=== PATIENT | female | born 1940 | race Caucasian/White ===

== ENCOUNTER → 2020-08-15 13:09 | Outpatient (REF) | payer MEDICARE, SELFPAY ==
--- NOTE | 2020-08-15 13:00 | CA_ITS ---
Transthoracic Echocardiogram Patient (Last, First, Middle): Zofia Burt A Gender: Female Date of : 1940 Age: 80 Procedure Date: 08/15/2020 Procedure Type: Transthoracic Echocardiogram Location: OP Height: 162.56 cm Weight: 51.26 kg BSA: 1.53 m2 Heart Rate: bpm BP: 174 / 70 mmHg Supervisor Type Bar And Segment: Referring MD: Lakhwinder Taveras MD Symptoms: PAF, diastolic dysfunction, pulmonary hypertension Study Quality: Good ECG Rhythm: Sinus Conclusions: - The left ventricular systolic function is normal. The visually estimated ejection fraction is between 60-65%. - There is mild calcification of the aortic valve. - There is mild mitral valve regurgitation. - There is mild tricuspid valve regurgitation. - Severe pulmonary hypertension is present. Findings Left Ventricle Normal left ventricular cavity size. There is normal left ventricular wall thickness. The left ventricular systolic function is normal. The visually estimated ejection fraction is between 60-65%. There is no evidence of regional wall motion abnormalities. E/E prime ratio is between 8 and 15 consistent with indeterminate filling pressures. Evidence suggests grade I (mild) diastolic dysfunction. Right Ventricle Normal right ventricular cavity size and systolic function. Atria The left atrium is normal in size. The right atrium is normal in size. Aortic Valve There is a normal trileaflet aortic valve. There is mild calcification of the aortic valve. There is no aortic valve stenosis. There is no aortic valve regurgitation. Mitral Valve The mitral valve appears normal. There is mild mitral valve regurgitation. There is no mitral valve stenosis. Pulmonic Valve The pulmonic valve was not well visualized. Tricuspid Valve Normal tricuspid valve structure. There is mild tricuspid valve regurgitation. The right ventricular systolic pressure is 68 mmHg. Severe pulmonary hypertension is present. Great Vessels The aortic annulus, sinuses of valsalva, asc aorta, and aortic arch are normal in size. Venous The inferior vena cava is normal in size and collapses greater than 50% with inspiration. Pericardium/Pleural There is no evidence of pericardial effusion. Prior Study Comparison Changes noted compared to prior study dated: 12/10/2017. RVSP is lower than prior study. Measurements 2D Linear Measurements RVADd: 0.39 RVIDd: 2.73 IVSd: 0.90 0.6-0.9/0.6-1.0 cm LVIDd: 4.89 3.9-5.3/4.2-5.9 cm LVIDs: 3.28 2.0-3.6 cm LVPWd: 1.03 0.7-1.1 cm Ao Root: 2.65 2.1-3.5 cm LA Diam: 3.70 2.7-3.8/3.0-4.0 cm LV Mass: 208.46 67-162/88-224 g LVOT Diam: 2.09 3.0+(-)1.3 cm Mitral Valve MV Pk E: 1.02 MV PK A: 1.24 MV Decel Time: 178.09 E/A: 0.82 E'Lateral: 0.09 E'Medial: 0.06 Decel Ellis: 5.75 Aortic Valve AoV Pk Ajit: 1.77 AoV Mn Ajit: 1.17 AoV VTI: 0.36 AoV Pk Grad: 12.58 Aov Mn Grad: 6.14 LVOT LVOT Pk Ajit: 1.30 LVOT Mn Ajit: 0.82 LVOT VTI: 0.24 LVOT Pk Grad: 6.74 LVOT Mn Grad: 3.14 LVOT Diam: 2.09 LVOT Area: 3.44 Diastolic Function MV Pk E: 1.02 MV Pk A: 1.24 E/A: 0.82 E'Medial: 0.06 E' Laterial: 0.09 Tricuspid Valve TR Pk Ajit: 3.88 TR Pk Grad: 60.28 RA Press: 8.00 RVSP: 68.00 Great Vessels Aorta Ao Root-2D: 2.65 2.0-3.7 cm Ao Asc: 3.23 2.1-3.4 cm Ao Arch: 2.34 Updated in Other Vendor System with Status of Final Lakhwinder Taveras MD electronically signed on 08/18/2020 1:32:33 PM with status of Final
== END ==
LOC: HO.CARD 13:09
PROVIDERS: PCP Internal Medicine; Visit Provider Internal Medicine
DX: I48.0 Paroxysmal atrial fibrillation (principal); I11.9 Hypertensive heart disease without heart failure; I27.20 Pulmonary hypertension, unspecified
CPT/HCPCS: 93306

== ENCOUNTER 2021-08-21 15:42 | Inpatient (IN) | payer OTHER, SELFPAY ==
--- NOTE | ~2021-08-21 | CT_ITS ---
EXAMINATION: CT ABDOMEN AND PELVIS WITHOUT CONTRAST CLINICAL INFORMATION: Fall, hip pain, back pain. On anticoagulants. COMPARISON: CT abdomen/pelvis dated from 07/09/2020. TECHNIQUE: Multidetector volumetric imaging was performed from the superior aspect of the liver through the pubic symphysis. Sagittal and coronal reformatted images were obtained on the technologist's workstation. This CT examination was performed using dose optimization techniques as appropriate, variously including the following: *Automated exposure control *Adjustment of mA and/or kV according to patient size (this includes techniques or standardized protocols for targeted exams where dose is matched to indication/reason for exam; i.e. extremities or head) *Use of iterative reconstruction technique DLP: 383 mGy-cm FINDINGS: LUNG BASES: New tree-in-bud opacities and reticular opacities in the right lung base with some associated subcentimeter centrilobular nodules. No pleural effusion. Partially visualized pacer leads. Coronary calcifications. LIVER, GALLBLADDER, AND BILIARY TREE: The liver is normal in size, shape and attenuation. Scattered calcified granulomas are stable. The gallbladder is within normal limits. There is no biliary ductal dilatation. PANCREAS: Atrophic without discrete abnormalities. The main pancreatic duct is nondilated. SPLEEN: Calcified granulomas scattered in the parenchyma. Normal size. ADRENAL GLANDS: Unremarkable. KIDNEYS AND URETERS: Extensive vascular calcifications. No hydronephrosis or nephrolithiasis. Mild perinephric fat stranding. BLADDER: Unremarkable. GASTROINTESTINAL TRACT: The stomach and the small bowel are nondilated. There is extensive stool burden throughout the colon and rectum without significant pericolic nor perirectal inflammatory changes. No bowel obstruction. ABDOMINAL WALL: Small fat-containing umbilical hernia. Indeterminate soft tissue tissue edema and thickening posterior to the sacrum. LYMPH NODES: Decreased intra-abdominal fat and lack of intravenous contrast limits assessment of lymphadenopathy. However, no bulky lymphadenopathy is identified. VASCULAR: There is redemonstration of an aorto bifemoral stent. In the upper abdomen adjacent to the celiac trunk, there is a stable outpouching off the left abdominal aorta (image 15 of series 24). The abdominal aorta measures up to 4.2 cm, which is increased from 4 cm on July 2020. PELVIC VISCERA: Hysterectomy. No adnexal lesions. OSSEOUS STRUCTURES: New fracture in the right hip intertrochanteric region with an overlying hematoma that measures up to 5.7 cm in length. The femoral heads are well-seated in the acetabula. Extensive degenerative changes with stable compression deformity at T12. CT/CT abdomen pelvis wo con IMPRESSION: New right femoral fracture at the level of the intertrochanteric region. Overlying hematoma in the right gluteal region measuring up to 5.7 cm in length with a blood fluid level. Soft tissue thickening in the skin posterior to the sacrum, correlate clinically for a dependent ulcer. New tree-in-bud and irregular opacities in the right lower lobe raising the possibility of an infectious process of the small airways. Correlate clinically and follow-up to ensure resolution. Complex appearance of the abdominal aorta with an aortobifemoral stent which is suboptimally evaluated in this examination without intravenous contrast. The diameter of the excluded abdominal aorta is slightly increase since July 2020. Recommend a short-term follow-up study with intravenous contrast if possible to evaluate for endoleak or other abnormalities associated with the stent. Extensive stool burden suggesting constipation.
--- NOTE | ~2021-08-21 | CT_ITS ---
EXAMINATION: CT HEAD WITHOUT CONTRAST CT CERVICAL SPINE WITHOUT CONTRAST CLINICAL INFORMATION: Trauma. COMPARISON: CT cervical spine dated from 09/12/2019. TECHNIQUE: Contiguous axial imaging was performed from the skull base to vertex without intravenous administration of contrast. Contiguous axial imaging was performed from the upper chest through the skull base without intravenous administration of contrast. Coronal and sagittal reformats were obtained at the acquisition workstation. This CT examination was performed using dose optimization techniques as appropriate, variously including the following: *Automated exposure control *Adjustment of mA and/or kV according to patient size (this includes techniques or standardized protocols for targeted exams where dose is matched to indication/reason for exam; i.e. extremities or head) *Use of iterative reconstruction technique DLP: 383 mGy-cm FINDINGS: Head: There is no evidence of acute intracranial hemorrhage or edematous territorial infarction. Confluent hypoattenuation in the periventricular and deep white matter. There are several chronic appearing infarcts, for example adjacent to the caudates and in the right occipital lobe. Proportional prominence of the ventricles and sulcal spaces. No evidence for obstructive hydrocephalus. Cavum et vergae. No abnormal mass effect or midline shift. No extra-axial fluid collections. No acute soft tissue or osseous abnormalities. Mild mucosal thickening of the paranasal sinuses. The mastoids are clear. Cervical Spine: The atlantooccipital and atlantoaxial articulations remain well aligned. Unchanged grade 1 anterolisthesis of C2 on C3 and C5 on C6. No evidence of acute fracture or subluxation. Redemonstration of moderate to significant cervical spondylosis, overall stable since 2019 and more prominent in the mid to lower cervical spine. There is also prominent bilateral facet arthropathy leading to multilevel neural foraminal encroachment. There is no prevertebral soft tissue swelling. A 1 cm hypoattenuating nodule in the left lobe of the thyroid is unchanged since 2019. There is biapical pleural thickening/scarring. 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 No acute edematous territorial infarction or intracranial bleeding. No acute cervical fractures. Moderate to significant cervical spondylosis stable since 2019.
--- NOTE | ~2021-08-21 | XR_ITS ---
EXAMINATION: XR HIP, RIGHT CLINICAL INFORMATION: Status post fall COMPARISON: Pelvis radiographs 09/12/2019 TECHNIQUE: AP pelvis, AP and lateral views of the right hip. FINDINGS: Positioning is somewhat suboptimal, the right leg is adducted. The sacrum is obscured by overlying soft tissue, stool and bowel gas. There is probable lucency extending through the upper margin of the greater trochanter which may represent an acute fracture. The bones are otherwise intact. The hip is in alignment, though there is narrowing of the joint space and subchondral cyst formation along the acetabulum compatible with degenerative osteoarthritis. There is a partially visualized abdominal aortic endograft. There is dense atherosclerotic calcification of the femoral arteries. The soft tissues otherwise unremarkable. XR/XR hip RT w PEL1V IMPRESSION: Probable right greater trochanter fracture.
--- NOTE | ~2021-08-21 | FL_ITS ---
EXAMINATION: XR FL WITH IMAGES HIP, RIGHT CLINICAL INFORMATION: Right femoral nailing. COMPARISON: None TECHNIQUE: Fluoroscopy performed by Dr. Genaro Blakely. Fluoroscopy Time: 0.6 minutes. DAP: 11.6 mGy. Images: 5. FINDINGS: 5 images demonstrate an intramedullary genesis and screw. FL/FL guidance in OR IMPRESSION: Fluoroscopy and imaging provided during right femoral nailing.
--- NOTE | ~2021-08-21 | CT_ITS ---
EXAMINATION: CT ANGIOGRAM ABDOMEN AND PELVIS CLINICAL INFORMATION: Status post aortoiliac graft, rule out endoleak. COMPARISON: CT abdomen and pelvis 08/21/2021, noncontrast CT 07/09/2020, CTA abdomen and pelvis 09/01/2021. TECHNIQUE: Multiple axial images were obtained through the abdomen and pelvis following the administration of 100 mL of Omnipaque 350 intravenous contrast. Images were reviewed on a dedicated 3-D workstation. Multiple 3-D angiographic images were postprocessed from the initial axial image data set on a dedicated 3-D workstation under concurrent supervision. Extensive vascular postprocessing was performed including 3-D volume rendered, maximum intensity projection, and curved multiplanar reformatted images This CT examination was performed using dose optimization techniques as appropriate, variously including the following: *Automated exposure control *Adjustment of mA and/or kV according to patient size (this includes techniques or standardized protocols for targeted exams where dose is matched to indication/reason for exam; i.e. extremities or head) *Use of iterative reconstruction technique DLP: 234 mGy-cm FINDINGS: VASCULAR: The distal thoracic aorta and suprarenal abdominal aorta are ectatic. There is focal saccular aneurysmal dilatation of the distal thoracic aorta measuring up to 3.6 cm. Juxtarenal aneurysmal dilatation of the aorta just proximal to the stent graft where the aorta measures 5.1 cm on non-short axis axial imaging (6, 118/647), measured at a similar location on most recent imaging from 2019 not significantly changed but increased from 4.4 cm in 2018. The patient is status post endovascular repair of the infrarenal abdominal aorta with bilateral common iliac artery limbs. The excluded graft measures up to 4 cm. There is no endoleak visualized. The iliac limbs are patent. Hypogastric arteries are diseased but do opacify well. The external iliac arteries are diseased but patent. 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 The renal arteries are diseased but patent. 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 There is an SMA stent in place which does appear to be patent. Replaced right hepatic artery from the SMA. LUNG BASES: Diffuse bronchial wall thickening in the lung bases. Patchy consolidation in the right lung base. LIVER, GALLBLADDER, AND BILIARY TREE: The liver is normal in size, shape, and attenuation. No focal hepatic lesion or biliary ductal dilatation is present. The gallbladder is unremarkable with no evidence of radiopaque gallstones, gallbladder wall thickening, or obvious pericholecystic inflammatory changes. PANCREAS: Mildly atrophic. No surrounding fat stranding. SPLEEN: Normal size. Calcified granulomas in the spleen. ADRENAL GLANDS: Unremarkable. KIDNEYS AND URETERS: The kidneys are normal in size, shape, and attenuation. No hydronephrosis, hydroureter, or calculi seen. No perinephric stranding. BLADDER: Unremarkable. GASTROINTESTINAL TRACT: No bowel obstruction. Stomach is decompressed. Moderate stool burden. ABDOMINAL WALL: Similar skin/soft tissue thickening over the sacral region, correlate with physical exam. LYMPH NODES: Normal. PELVIC VISCERA: Uterus not visualized. OSSEOUS STRUCTURES: Right intertrochanteric hip fracture with surrounding hematoma. [id number] degenerative changes throughout the spine. Stable superior endplate compression deformity at T12. Bones are demineralized. CT/CT angio abdomen pelvis IMPRESSION: Status post endovascular repair of the infrarenal abdominal aorta with aortobiiliac stent graft. No endoleak. 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 Extensive atherosclerotic disease described above. Diffuse bronchial wall thickening with patchy consolidation in the right lung base.
[2021-08-21 16:07] VITALS: BMI 17.2
[2021-08-21 16:13] VITALS: BP 160/70; PULSE 79; RESP 18; TEMP 36.6; O2SAT 97
--- NOTE | 2021-08-21 16:23 | ED_ITS ---
HPI - Fall General Chief Complaint: Fall Stated Complaint: fall Time Seen by Provider: 08/21/21 15:55 History of Present Illness HPI Narrative: Patient is a 81-year-old female presents today after an accidental fall. She has a history of atrial fibrillation. She is on Eliquis currently. Complaining of pain to the back of the head. Also complaining of pain to the right hip area. There was no loss of consciousness. No dizziness no nausea no vomiting patient has chronic grab a bottle water when she slipped. No chest pain. No diaphoresis. No fever no chills. No coughing or congestion. No abdominal pain. Related Data Previous Rx's Medication Instructions Recorded albuterol sulfate 90 mcg/actuation 2 puff INHALATION Q6H PRN 30 Days 08/14/20 aerosol inhaler (ProAir HFA) #18 g Allergies Allergy/AdvReac Type Severity Reaction Status Date / Time amoxicillin [Amoxicillin] Allergy Severe NAUSEA/VOMI Unverified 07/24/20 15:28 TING aspirin [Aspirin] Allergy Severe GASTRITIS Unverified 07/24/20 15:28 ibuprofen [Ibuprofen] Allergy Severe GASTRITIS Unverified 07/24/20 15:28 Erythromycin Allergy Unknown Unverified 06/13/20 00:00 Motrin Allergy Unknown Unverified 06/13/20 00:00 erythromycin base AdvReac Severe HEADACHES Unverified 07/24/20 15:28 [Erythromycin Base] Review of Systems Review of Systems: No fever no chills no chest pain or shortness of breath no nausea no vomiting No dizziness no focal weakness All systems reviewed otherwise negative Yes all other systems are reviewed and are negative PMFSH Past Medical History Attestation statement: The following information was validated with the patient. Medical History Persistent atrial fibrillation Social History Social History Patient Tobacco Use Status: Current everyday Tobacco user Use of substances other than those prescribed or required for medical reasons: No Advance Directives: No Advance Directives Information Provided: Yes Physical Exam Vital Signs: Vital Signs: Last Vital Signs Temp 98 F 08/21/21 16:13 Pulse 79 08/21/21 16:13 Resp 18 08/21/21 16:56 BP 179/76 H 08/21/21 16:57 Pulse Ox 97 08/21/21 16:13 Body Mass Index 17.2 Appearance: Alert. Oriented X3. No acute distress. Eyes: Pupils equal, round and reactive to light. ENT: Pharynx normal. Neck: Normal inspection. Neck supple. No lymph nodes noted. No crepitus CVS: Normal heart rate and rhythm. Pulses normal. Normal S1 and S2 Respiratory: No respiratory distress. Breath sounds normal. No Wheezing. No rales Abdomen: Soft and nontender. No rigidity. No distention. good BS x4 Skin: Skin warm and dry. Normal skin color. Normal skin turgor. Extremities: No lower extremity edema. Neurovascular intact to all extremities. No Lacerations. No Rash Neuro: Oriented X 3. No motor deficit. No sensory deficit. Moving all extermities. No slurred speech MDM - Fall MDM Narrative Medical decision making narrative: Patient's hemoglobin is 7.8. Baseline is about 10. Patient is on Eliquis. The fall was accidental. CT scan of the head was negative for bleeding. CT scan C-spine no evidence for fracture. CT of the abdomen pelvis was negative for retroperitoneal hematoma. It is however positive for having a right intertrochanteric fracture. The finding was discussed with Orthopedics. Given patient's history of being on a blood thinne r. Will need a few days for the Eliquis to be taken out of the system. Will be monitoring for serial hemoglobin. Case was discussed with the hospitalist team for admission. Agreed to plan. Currently in stable condition. Medical Records Attestation: I reviewed the patient's medical records. Lab Data Attestation: I reviewed the patient's lab results. Result diagrams: 08/21/21 16:22 08/21/21 16:22 Labs: Lab Results 08/21/21 08/21/21 Range/Units 16:22 16:22 WBC 6.9 (4.8-10.8) X10*3/uL RBC 2.89 L (4.20-5.50) X10*6/uL Hgb 7.8 L (12.0-16.0) g/dl Hct 23.9 L (37-47) % MCV 82.7 (80-98) fL MCH 27.0 (27.0-33.0) pg MCHC 32.6 (31.0-35.0) g/dl RDW 14.2 (11.0-16.0) % Plt Count 275 (160-400) X10*3/uL MPV 9.7 (9.4-12.3) fL Immature Gran % (Auto) 0.4 (0.0-0.4) % Neut % (Auto) 75.8 H (45-73) % Lymph % (Auto) 13.9 L (20-40) % [place] % (Auto) 8.6 (2-11) % Eos % (Auto) 0.9 (0-4) % Baso % (Auto) 0.4 (0-2) % Lymph # (Auto) 1.0 L (1.2-4.9) X10*3/uL [place] # (Auto) 0.6 (0.1-1.2) X10*3/uL Eos # (Auto) 0.1 (0.0-0.4) X10*3/uL Baso # (Auto) 0.0 (0.0-0.2) X10*3/uL Abs Immat Gran (auto) 0.03 (0.00-0.03) X10*3/uL Absolute Neuts (auto) 5.2 (2.0-8.3) X10*3/uL Absolute Nucleated RBC 0.000 (0.0-0.012) X10*3/uL Nucleated RBC % (auto) 0.0 (0.0-0.2) /100WBC Sodium 140 (135-145) mmol/L Potassium 3.5 (3.3-5.1) mmol/L Chloride 100 (96-108) mmol/L Carbon Dioxide 31 H (22-29) mmol/L Anion Gap 13 (12-20) BUN 13 (9-16) mg/dL Creatinine 0.90 (0.5-1.4) mg/dL Estim Creat Clear Calc 33.8 Estimated GFR 60 Random Glucose 102 (60-115) mg/dL Calcium 9.3 (8.4-10.2) mg/dL Discharge Plan Discharge Clinical Impression: Closed hip fracture, Anemia Patient Disposition: Admitted As Inpatient Prescriptions: No Action albuterol sulfate [ProAir HFA] 90 mcg/actuation HFA aerosol inhaler 2 puff inhalation Q6H PRN (Reason: shortness of breath or wheezing) 30 Days Qty: 18 RF: 5
[2021-08-21 16:29] LABS: MANUAL DIFF FLAG NO
[2021-08-21 16:31] LABS: Basophils Percent Auto 0.4 % (0-2); Eosinophils Absolute Auto 0.1 X10*3/uL (0.0-0.4); Eosinophils Percent Auto 0.9 % (0-4); Hematocrit 23.9 % (37-47); Hemoglobin 7.8 g/dl (12.0-16.0); Imm Gran Abs Auto 0.03 X10*3/uL (0.00-0.03); Imm Gran Pct Auto 0.4 % (0.0-0.4); Lymphocytes Percent Auto 13.9 % (20-40); Mean Corpuscular HGB Conc 32.6 g/dl (31.0-35.0); Mean Corpuscular Volume 82.7 fL (80-98); Mean Platelet Volume 9.7 fL (9.4-12.3); Monocytes Absolute Auto 0.6 X10*3/uL (0.1-1.2); Monocytes Percent Auto 8.6 % (2-11); Neutrophils Absolute Auto 5.2 X10*3/uL (2.0-8.3); Neutrophils Percent Auto 75.8 % (45-73); Platelet Count 275 X10*3/uL (160-400); Red Blood Count 2.89 X10*6/uL (4.20-5.50); Red Cell Distribution Width 14.2 % (11.0-16.0); White Blood Count 6.9 X10*3/uL (4.8-10.8)
[2021-08-21 16:44] LABS: Anion Gap 13 (12-20); Blood Urea Nitrogen 13 mg/dL (9-16); Calcium 9.3 mg/dL (8.4-10.2); Carbon Dioxide 31 mmol/L (22-29); Chloride 100 mmol/L (96-108); Creatinine Clr Calc Pharmacy 33.8; Estimated Glomerular Filt Rate 60; Glucose Random 102 mg/dL (60-115); Potassium 3.5 mmol/L (3.3-5.1); Sodium 140 mmol/L (135-145)
[2021-08-21 16:56] VITALS: RESP 18
[2021-08-21] MEDS: HYDROmorphone HCl 0.5 MG/0.5 ML SYRINGE 0.25 MG IVPUSH (16:56)
[2021-08-21 16:57] VITALS: BP 179/76
[2021-08-21 19:50] LABS: Basophils Percent Auto 0.3 % (0-2); Eosinophils Absolute Auto 0.1 X10*3/uL (0.0-0.4); Eosinophils Percent Auto 0.4 % (0-4); Hematocrit 24.2 % (37-47); Imm Gran Abs Auto 0.08 X10*3/uL (0.00-0.03); Imm Gran Pct Auto 0.7 % (0.0-0.4); Lymphocytes Absolute Auto 0.9 X10*3/uL (1.2-4.9); Lymphocytes Percent Auto 7.7 % (20-40); MANUAL DIFF FLAG NO; Mean Corpuscular HGB Conc 33.1 g/dl (31.0-35.0); Mean Corpuscular Hemoglobin 27.2 pg (27.0-33.0); Mean Corpuscular Volume 82.3 fL (80-98); Mean Platelet Volume 9.8 fL (9.4-12.3); Monocytes Absolute Auto 0.8 X10*3/uL (0.1-1.2); Monocytes Percent Auto 6.8 % (2-11); Neutrophils Percent Auto 84.1 % (45-73); Platelet Count 284 X10*3/uL (160-400); Red Blood Count 2.94 X10*6/uL (4.20-5.50); Red Cell Distribution Width 14.3 % (11.0-16.0); White Blood Count 11.9 X10*3/uL (4.8-10.8)
[2021-08-21 20:00] VITALS: BP 170/81; PULSE 82; RESP 16; TEMP 36.9; O2SAT 95
--- NOTE | 2021-08-21 20:55 | PM.IMHP ---
History of Present Illness Date of Service: 08/21/21 Chief Complaint: Fall 81-year-old female with a past medical history of hypertension, hyperlipidemia,? CHF, AFib on Eliquis, lives alone has a home [employer]; presented to the hospital today with a chief complaint of fall. Patient reports that she tripped over a box and fell; hit her head; did not lose consciousness; had pain in the hip and unable to get up; subsequently son called her and called the EMS. Patient denied any chest pain lightheadedness dizziness. Denies any numbness tingling or focal weakness. Denies any fever chills cough or urinary symptoms. Review of all other systems is negative except mentioned above ER course: Per ER team patient on presentation noted to have pain in the hip; x-ray showed right femur intertrochanteric fracture with 5 cm hematoma; discussed with orthopedics who recommended admission to the medicine service; Patient had drop in hemoglobin to 7.8; and the repeat hemoglobin remained stable at 8; blood pressure is stable. peripheral pulses are palpable. Neurovascularly intact. Admitted to the hospital for further management[facility] Medical History Persistent atrial fibrillation Pertinent family history: Reviewed Social History Patient Tobacco Use Status: Current everyday Tobacco user Use of substances other than those prescribed or required for medical reasons: No Advance Directives: No Advance Directives Information Provided: Yes Meds Allergies Allergy/AdvReac Type Severity Reaction Status Date / Time amoxicillin [Amoxicillin] Allergy Severe NAUSEA/VOMI Unverified 07/24/20 15:28 TING aspirin [Aspirin] Allergy Severe GASTRITIS Unverified 07/24/20 15:28 ibuprofen [Ibuprofen] Allergy Severe GASTRITIS Unverified 07/24/20 15:28 Erythromycin Allergy Unknown Unverified 06/13/20 00:00 Motrin Allergy Unknown Unverified 06/13/20 00:00 erythromycin base AdvReac Severe HEADACHES Unverified 07/24/20 15:28 [Erythromycin Base] Active Medications: Current Medications Acetaminophen (Acetaminophen 325 Mg Tablet) 650 mg PO Q6H PRN PRN Reason: Pain, Mild (Pain Scale 1-3) Pharmacy Consult (Consult Rx Perform Med Rec) 1 each MISCELLANE ONCE PRN PRN Reason: Consult order Senna (Sennosides 8.6 Mg Tablet) 17.2 mg PO BEDTIME PRN PRN Reason: Constipation Sodium Chloride (0.9 % Sodium Chloride Flush 3 Ml Syringe) 3 ml IVFLUSH QSHIFT [place] Home Meds:Unable to confiorm meds ; pt's son or pts [employer] gabriela ([id number]) doesnot recall; requested records from [facility]. Lasix ?Metoprolol Eliquis Physical Exam Vital Signs and Narrative: Vital Signs: Last Vital Signs Temp 98 F 08/21/21 16:13 Pulse 79 08/21/21 16:13 Resp 18 08/21/21 16:56 BP 179/76 H 08/21/21 16:57 Pulse Ox 97 08/21/21 16:13 Body Mass Index 17.2 Gen: Appears be in no acute distress HEENT: NCAT, Moist mucosa. Pulmonary: Vesicular breath sounds, fair air entry CVS: Normal S1-S2 Abdomen: BS+, Soft, Nontender Extremities: Warm well perfused; peripheral pulses palpable bilaterally in the lower extremities. Right lower extremity exam limited secondary to the pain in the hip. Able to move extremities. Neuro: Alert and awake. Results Labs CBC and Chem 7: 08/21/21 19:44 08/21/21 16:22 Labs: Laboratory Results - last 24 hr 08/21/21 08/21/21 08/21/21 16:22 16:22 19:44 MCV 82.7 82.3 MCH 27.0 27.2 MCHC 32.6 33.1 RDW 14.2 14.3 Plt Count 275 284 MPV 9.7 9.8 Immature Gran % (Auto) 0.4 0.7 H Neut % (Auto) 75.8 H 84.1 H Lymph % (Auto) 13.9 L 7.7 L [place] % (Auto) 8.6 6.8 Eos % (Auto) 0.9 0.4 Baso % (Auto) 0.4 0.3 Lymph # (Auto) 1.0 L 0.9 L [place] # (Auto) 0.6 0.8 Eos # (Auto) 0.1 0.1 Baso # (Auto) 0.0 0.0 Abs Immat Gran (auto) 0.03 0.08 H Absolute Neuts (auto) 5.2 10.0 H Absolute Nucleated RBC 0.000 0.000 Nucleated RBC % (auto) 0.0 0.0 Anion Gap 13 Estim Creat Clear Calc 33.8 Estimated GFR 60 Random Glucose 102 Calcium 9.3 Imaging Radiologist's Impressions: Impressions Cervical Spine CT 08/21/21 16:14 IMPRESSION: Extensive white matter changes, 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 No acute edematous territorial infarction or intracranial bleeding. No acute cervical fractures. Moderate to significant cervical spondylosis stable since 2018. 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 No acute edematous territorial infarction or intracranial bleeding. No acute cervical fractures. Moderate to significant cervical spondylosis stable since 2019. Abdomen/Pelvis CT 08/21/21 16:16 IMPRESSION: New right femoral fracture at the level of the intertrochanteric region. Overlying hematoma in the right gluteal region measuring up to 5.7 cm in length with a blood fluid level. Soft tissue thickening in the skin posterior to the sacrum, correlate clinically for a dependent ulcer. New tree-in-bud and irregular opacities in the right lower lobe raising the possibility of an infectious process of the small airways. Correlate clinically and follow-up to ensure resolution. Complex appearance of the abdominal aorta with an aortobifemoral stent which is suboptimally evaluated in this examination without intravenous contrast. The diameter of the excluded abdominal aorta is slightly increase since July 2020. Recommend a short-term follow-up study with intravenous contrast if possible to evaluate for endoleak or other abnormalities associated with the stent. Extensive stool burden suggesting constipation. Hip/Pelvis X-Ray 08/21/21 18:03 IMPRESSION: Probable right greater trochanter fracture. Assessment and Plan (1) Closed hip fracture: Status: Acute (2) Persistent atrial fibrillation: Status: Acute (3) Acute blood loss anemia: Status: Acute 81-year-old female with a past medical history of hypertension, hyperlipidemia,? CHF, AFib on Eliquis, history of TIA, COPD, aortic aneurysm status post repair; History of complete heart block status post pacemaker, GERD, arthritis, anxiety lives alone has a home [employer]; presented to the hospital today with a chief complaint of fall. Right intertrochanteric fracture: Orthopedics is aware of the patient. recommended medicine admission. Pain control. Preop evaluation: Patient has high RCRI score. Will consult Cardiology preop evaluation. Anemia secondary to acute blood loss: Notify centimetre hematoma near the fracture site. Patient had peripheral pulses. Hemoglobin of 7.8 on presentation, follow-up hemoglobin 8.0. Vital stable. Will continue to monitor. Home Eliquis. History of AFib: Rate controlled. Eliquis on hold ? History of CHF: Patient was on Lasix per pt's [employer]. Currently not in fluid overload. History of COPD stable. DuoNebs p.r.n. History of aortic aneurysm status post repair: Patient currently denies any pain. Patient's blood pressure currently slightly elevated secondary to the pain. Labetalol p.r.n.(will be cautious with antihypertensives given concerns for blood loss anemia) Goal blood pressure less than 140/90. Other medical conditions: Patient unable to recall home medications are past medical conditions. Reports that she has a pacemaker. Spoke to the patient's son and patient's [employer] who were not able to provide information about her medications or medical conditions. Requested records from [facility]. DVT ppx: SCd Full code Quality Stroke Does the patient have a stroke diagnosis?: No VTE Prior VTE?: No VTE Risk Level:: Medical - moderate - high VTE Device Contraindication: N/A - Device Ordered VTE Drug Contraindication: Treatment Not Indicated
[2021-08-21 21:36] LABS: COVID-19 Test Negative (Negative)
[2021-08-21 22:00] VITALS: RESP 18
[2021-08-21 23:55] VITALS: BP 144/54; PULSE 83; RESP 12; TEMP 37.3; O2SAT 93
[2021-08-22] VITALS (9 sets, daily range): BP systolic 149–181; BP diastolic 56–83; PULSE 80–90; RESP 14–18; TEMP 37.1–37.6; O2SAT 93–98
[2021-08-22] MEDS: HYDROmorphone HCl 0.5 MG/0.5 ML SYRINGE 0.25 MG IVPUSH ×4 (02:13→16:33)
[2021-08-22 06:22] LABS: MANUAL DIFF FLAG NO
[2021-08-22 06:26] LABS: Basophils Absolute Auto 0.1 X10*3/uL (0.0-0.2); Basophils Percent Auto 0.5 % (0-2); Eosinophils Percent Auto 0.1 % (0-4); Hematocrit 25.1 % (37-47); Hemoglobin 8.1 g/dl (12.0-16.0); Imm Gran Abs Auto 0.04 X10*3/uL (0.00-0.03); Imm Gran Pct Auto 0.4 % (0.0-0.4); Lymphocytes Absolute Auto 0.9 X10*3/uL (1.2-4.9); Lymphocytes Percent Auto 8.9 % (20-40); Mean Corpuscular HGB Conc 32.3 g/dl (31.0-35.0); Mean Corpuscular Hemoglobin 26.6 pg (27.0-33.0); Mean Corpuscular Volume 82.6 fL (80-98); Mean Platelet Volume 10.3 fL (9.4-12.3); Monocytes Absolute Auto 0.9 X10*3/uL (0.1-1.2); Monocytes Percent Auto 8.9 % (2-11); Neutrophils Absolute Auto 7.8 X10*3/uL (2.0-8.3); Neutrophils Percent Auto 81.2 % (45-73); Platelet Count 279 X10*3/uL (160-400); Red Blood Count 3.04 X10*6/uL (4.20-5.50); Red Cell Distribution Width 14.2 % (11.0-16.0); White Blood Count 9.6 X10*3/uL (4.8-10.8)
[2021-08-22 06:54] LABS: Anion Gap 18 (12-20); Blood Urea Nitrogen 12 mg/dL (9-16); Calcium 9.5 mg/dL (8.4-10.2); Carbon Dioxide 26 mmol/L (22-29); Chloride 102 mmol/L (96-108); Creatinine Clr Calc Pharmacy 37.1; Estimated Glomerular Filt Rate > 60; Glucose Random 96 mg/dL (60-115); Potassium 3.7 mmol/L (3.3-5.1); Sodium 142 mmol/L (135-145)
[2021-08-22] MEDS: iohexoL 350 MG/ML 100 ML INFUS..BTL IV (09:40)
--- NOTE | 2021-08-22 10:07 | ECG_ITS ---
Test Reason : FALL Blood Pressure : / mmHG Vent. Rate : 092 BPM Atrial Rate : 092 BPM P-R Int : 240 ms QRS Dur : 138 ms QT Int : 394 ms P-R-T Axes : 069 -73 104 degrees QTc Int : 487 ms Atrial-sensed ventricular-paced rhythm with prolonged AV conduction with occasional Premature ventricular complexes Abnormal ECG No significant changes seen Referred By: Isiah Prescott Electronically Signed By:CRISELDA TRAN MD
--- NOTE | 2021-08-22 10:07 | P.CONCA_ITS ---
History of Present Illness History of Present Illness Date of Service: 08/22/21 Requesting physician: Anthony Pressley Consult reason: atrial fibrillation and pre-op evaluation Chief complaint: fall Narrative: I was requested to see Zofia in cardiology consultation today for preoperative cardiovascular risk stratification. She usually sees Dr. Taveras every July for pacemaker evaluation, however was not seen this year. She has had remote device checks which have been all within acceptable limits. She has persistent atrial fibrillation, pacemaker placement for complete heart block, severe pulmonary hypertension, hypertension. She lives at home alone and yesterday had an accidental fall and came to the hospital with right hip pain. She was noted to have right hip fracture and is being evaluated by orthopedic team for open repair and internal fixation. Cardiology consult was sought due to her advanced age, cardiac issues to evaluate for risk stratification for surgery. Surgeries required urgent basis to fix her hip to improve her morbidity and mortality in the near future and intermediate future. She says at around the house she walks without having any cardiac symptoms of exertional chest pain or shortness of breath. She has no palpitations, lightheadedness, syncope. On presentation to the ED she was noted to be in atrial fibrillation with intermittent pacing as well as significantly anemic with hematoma in the right gluteal region related to the hip fracture. She is on oral anticoagulation with Eliquis which has been withheld. Her hemoglobin is currently stable. She is denying any cardiac symptoms at this point in time Review of Systems Constitutional: Constitutional: Reports no additional constitutional complaints Cardiovascular: Cardiovascular: Reports no additional cardiovascular complaints Respiratory: Respiratory: Reports no additional respiratory complaints Gastrointestinal: Gastrointestinal: Reports no additional gastrointestinal complaints Genitourinary: Genitourinary: Reports no additional female genitourinary complaints Musculoskeletal: Musculoskeletal: Reports other (Right hip pain) Neurologic: Reports system reviewed and no additional complaints, except as documented Psychiatric: Psychiatric: Reports no additional psychiatric complaints Endocrine: Endocrine: Reports no additional endocrine complaints Hematologic/Lymphatic: Hematologic/Lymphatic: Reports no additional hematologic/lymphatic complaints [facility] Past Medical History Medical History (Updated 08/22/21 @ 10:12 by Isiah Prescott MD) AAA (abdominal aortic aneurysm) Complete heart block COPD (chronic obstructive pulmonary disease) HTN (hypertension) Nocturnal hypoxemia Persistent atrial fibrillation Pulmonary hypertension Surgical History Surgical History (Updated 08/22/21 @ 07:26 by Tyson Pratt MD) Pacemaker Social History Social History Patient Tobacco Use Status: Current everyday Tobacco user Use of substances other than those prescribed or required for medical reasons: No Advance Directives: No Advance Directives Information Provided: Yes Meds Allergies Allergy/AdvReac Type Severity Reaction Status Date / Time amoxicillin [Amoxicillin] Allergy Severe NAUSEA/VOMI Unverified 07/24/20 15:28 TING aspirin [Aspirin] Allergy Severe GASTRITIS Unverified 07/24/20 15:28 ibuprofen [Ibuprofen] Allergy Severe GASTRITIS Unverified 07/24/20 15:28 Erythromycin Allergy Unknown Unverified 06/13/20 00:00 Motrin Allergy Unknown Unverified 06/13/20 00:00 erythromycin base AdvReac Severe HEADACHES Unverified 07/24/20 15:28 [Erythromycin Base] Active Medications: Current Medications Acetaminophen (Acetaminophen 325 Mg Tablet) 650 mg PO Q6H PRN PRN Reason: Pain, Mild (Pain Scale 1-3) Albuterol/Ipratropium (Albuterol/Iprat 2.5/0.5mg 3 Ml Ampul.Neb) 3 ml INHALE RQ4H PRN PRN Reason: Shortness of Breath/Wheezing Hydromorphone HCl (Hydromorphone Hcl 0.5 Mg/0.5 Ml Syringe) 0.25 mg IVPUSH Q4H PRN; Protocol PRN Reason: Breakthrough Pain Last Admin: 08/22/21 06:13 Dose: 0.25 mg Documented by: Melatonin (Melatonin 3 Mg Tablet) 6 mg PO BEDTIME PRN PRN Reason: Insomnia Pharmacy Consult (Consult Rx Perform Med Rec) 1 each MISCELLANE ONCE PRN PRN Reason: Consult order Senna (Sennosides 8.6 Mg Tablet) 17.2 mg PO BEDTIME PRN PRN Reason: Constipation Sodium Chloride (0.9 % Sodium Chloride Flush 3 Ml Syringe) 3 ml [facility] [place] Last Admin: 08/22/21 07:37 Dose: Not Given Documented by: Home Medications Medication Instructions Recorded Confirmed Last Taken Type apixaban 5 mg tablet (Eliquis) 5 mg PO BID 08/21/21 08/21/21 Unknown History clonazepam 0.5 mg tablet 0.5 mg PO 08/21/21 Unknown History diltiazem HCl 180 mg 180 mg PO 08/21/21 Unknown History capsule,extended release 24 hr, controlled docusate sodium 100 mg capsule 100 mg PO DAILY 08/21/21 Unknown History duloxetine 20 mg capsule,delayed 20 mg PO 08/21/21 Unknown History release famotidine 20 mg tablet 20 mg PO 08/21/21 Unknown History fenofibrate nanocrystallized 145 145 mg PO DAILY 08/21/21 Unknown History mg tablet furosemide 20 mg tablet mg 08/21/21 Unknown History hydralazine 50 mg tablet 50 mg PO 08/21/21 Unknown History lisinopril 2.5 mg tablet mg 08/21/21 Unknown History melatonin 3 mg tablet 3 mg PO BEDTIME 08/21/21 Unknown History oxycodone 5 mg tablet 5 mg PO 08/21/21 Unknown History ropinirole 0.25 mg tablet mg PO 08/21/21 Unknown History sennosides 8.6 mg tablet (senna) 8.6 mg PO 08/21/21 Unknown History simvastatin 20 mg tablet 20 mg PO BEDTIME 08/21/21 Unknown History zolpidem 10 mg tablet mg 08/21/21 Unknown History Physical Exam Vital Signs: Vital Signs: Last Vital Signs Temp 99.1 F 08/21/21 23:55 Pulse 90 08/22/21 04:00 Resp 16 08/22/21 04:00 BP 149/56 H 08/22/21 04:00 Pulse Ox 94 08/22/21 04:00 Body Mass Index 17.2 Const: General: cooperative, comfortable, no acute distress, alert and awake Nutritional Appearance: other (Cachectic, frail) Orientation/consciousness: patient oriented x3 HENMT: Head: Yes normocephalic and Yes atraumatic Neck: Neck: Yes trachea midline, Yes supple and Yes no JVD Resp: Effort & Inspection: decreased respiratory effort Auscultation: no rales, no wheezes and diminished lung sounds Cardio: Jugular venous distension: no JVD Rhythm: abnormal rhythm irregularly irregular Heart sounds: S1 normal heart sound present, S2 normal heart sound present, no click, no gallops, no murmurs and no rubs GI: Auscultation: normal bowel sounds Skin: General skin exam: no rashes or lesions noted and ecchymosis Neuro: General: patient oriented x3 and no focal motor deficits Extrem: General: Yes no clubbing, cyanosis or edema Results Labs and Meds Result diagrams: 08/22/21 05:54 08/22/21 05:54 Lab results: Laboratory Results - last 24 hr 08/21/21 08/21/21 08/21/21 16:22 16:22 19:44 WBC 6.9 11.9 H RBC 2.89 L 2.94 L Hgb 7.8 L 8.0 L Hct 23.9 L 24.2 L MCV 82.7 82.3 MCH 27.0 27.2 MCHC 32.6 33.1 RDW 14.2 14.3 Plt Count 275 284 MPV 9.7 9.8 Immature Gran % (Auto) 0.4 0.7 H Neut % (Auto) 75.8 H 84.1 H Lymph % (Auto) 13.9 L 7.7 L [place] % (Auto) 8.6 6.8 Eos % (Auto) 0.9 0.4 Baso % (Auto) 0.4 0.3 Lymph # (Auto) 1.0 L 0.9 L [place] # (Auto) 0.6 0.8 Eos # (Auto) 0.1 0.1 Baso # (Auto) 0.0 0.0 Abs Immat Gran (auto) 0.03 0.08 H Absolute Neuts (auto) 5.2 10.0 H Absolute Nucleated RBC 0.000 0.000 Nucleated RBC % (auto) 0.0 0.0 Sodium 140 Potassium 3.5 Chloride 100 Carbon Dioxide 31 H Anion Gap 13 BUN 13 Creatinine 0.90 Estim Creat Clear Calc 33.8 Estimated GFR 60 Random Glucose 102 Calcium 9.3 COVID-19 (ELSA) COVID-19 Clin Com Blood Type Antibody Screen 08/21/21 08/21/21 08/22/21 21:13 21:14 05:54 WBC 9.6 RBC 3.04 L Hgb 8.1 L Hct 25.1 L MCV 82.6 MCH 26.6 L MCHC 32.3 RDW 14.2 Plt Count 279 MPV 10.3 Immature Gran % (Auto) 0.4 Neut % (Auto) 81.2 H Lymph % (Auto) 8.9 L [place] % (Auto) 8.9 Eos % (Auto) 0.1 Baso % (Auto) 0.5 Lymph # (Auto) 0.9 L [place] # (Auto) 0.9 Eos # (Auto) 0.0 Baso # (Auto) 0.1 Abs Immat Gran (auto) 0.04 H Absolute Neuts (auto) 7.8 Absolute Nucleated RBC 0.000 Nucleated RBC % (auto) 0.0 Sodium Potassium Chloride Carbon Dioxide Anion Gap BUN Creatinine Estim Creat Clear Calc Estimated GFR Random Glucose Calcium COVID-19 (ELSA) Negative COVID-19 Clin Com See Note Blood Type B Positive Antibody Screen NEGATIVE 08/22/21 05:54 WBC RBC Hgb Hct MCV MCH MCHC RDW Plt Count MPV Immature Gran % (Auto) Neut % (Auto) Lymph % (Auto) [place] % (Auto) Eos % (Auto) Baso % (Auto) Lymph # (Auto) [place] # (Auto) Eos # (Auto) Baso # (Auto) Abs Immat Gran (auto) Absolute Neuts (auto) Absolute Nucleated RBC Nucleated RBC % (auto) Sodium 142 Potassium 3.7 Chloride 102 Carbon Dioxide 26 Anion Gap 18 BUN 12 Creatinine 0.82 Estim Creat Clear Calc 37.1 Estimated GFR > 60 Random Glucose 96 Calcium 9.5 COVID-19 (ELSA) COVID-19 Clin Com Blood Type Antibody Screen Imaging Radiologist's impression: Impressions Cervical Spine CT 08/21/21 16:14 IMPRESSION: Extensive white matter changes, 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 No acute edematous territorial infarction or intracranial bleeding. No acute cervical fractures. Moderate to significant cervical spondylosis stable since 2019. 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 No acute edematous territorial infarction or intracranial bleeding. No acute cervical fractures. Moderate to significant cervical spondylosis stable since 2019. Abdomen/Pelvis CT 08/21/21 16:16 IMPRESSION: New right femoral fracture at the level of the intertrochanteric region. Overlying hematoma in the right gluteal region measuring up to 5.7 cm in length with a blood fluid level. Soft tissue thickening in the skin posterior to the sacrum, correlate clinically for a dependent ulcer. New tree-in-bud and irregular opacities in the right lower lobe raising the possibility of an infectious process of the small airways. Correlate clinically and follow-up to ensure resolution. Complex appearance of the abdominal aorta with an aortobifemoral stent which is suboptimally evaluated in this examination without intravenous contrast. The diameter of the excluded abdominal aorta is slightly increase since July 2020. Recommend a short-term follow-up study with intravenous contrast if possible to evaluate for endoleak or other abnormalities associated with the stent. Extensive stool burden suggesting constipation. Hip/Pelvis X-Ray 08/21/21 18:03 IMPRESSION: Probable right greater trochanter fracture. Assessment and Plan (1) Preoperative cardiovascular examination: Status: Acute Preoperative cardiovascular examination for acute hip fracture that requires urgent surgery in this elderly woman with overall poor functional status, frailty, persistent atrial fibrillation, severe pulmonary hypertension by last echocardiogram about a year ago with no clear active symptoms of angina or signs of congestive heart failure at this point in time. Will obtain a 12 lead EKG. Will also obtain an echocardiogram to assess for her pulmonary hypertension LV systolic and diastolic function as well as RV function. Given the urgent nature of surgery I think no other further workup is required in the preoperative., she is intermediate to high risk for perioperative cardiovascular morbidity mortality given her multiple risk factors, however is currently optimized to undergo surgery. Would optimize her with transfuse packed RBC to maintain hematocrit above 30 to reduce hemodynamic stress on the heart. Twelve lead EKG as above. Can use IV Cardizem for rate control if heart rate is difficult to control. Pacemaker seems to be functioning optimally at this point in time. Continue pain control. Continue her usual medications, while withholding Lasix therapy. Also holding Eliquis for now is appropriate given that she needs to undergo urgent surgery and resume as soon as possible after surgery. (2) Persistent atrial fibrillation: Status: Acute Atrial fibrillation with borderline rate control. This most likely due to pain and anemia. Can use IV Cardizem for rate control if needed. Can with hold Eliquis for upcoming surgery and resume as soon as possible. However chronic dose of Eliquis needs to be readjusted given her age and her body weight to 2.5 mg b.i.d.. Will sign of the case. Feel free to consult us if needed Procedures Date of Service Date of Service: 08/22/21
--- NOTE | 2021-08-22 10:40 | HO.PM.IMPN ---
Subjective Subjective Date of Service: 08/22/21 Interval History: cc: fall interval history: hip pain Cardiovascular Cardiovascular: Reports no additional cardiovascular complaints Respiratory Respiratory: Reports no additional respiratory complaints Physical Exam Vital Signs: Vital Signs: Last Vital Signs Temp 99.1 F 08/21/21 23:55 Pulse 90 08/22/21 04:00 Resp 16 08/22/21 04:00 BP 149/56 H 08/22/21 04:00 Pulse Ox 94 08/22/21 04:00 Body Mass Index 17.2 General: AO X 3, no acute distress, frail appearing Resp: diminished, no accessory muscles used CVS: S1,S2,RRR GI: soft, non tender, non distended Neuro: motor grossly intact, alert Psych: appropriate affect, appropriate insight Objective Data Active Medications Acetaminophen (Acetaminophen 325 Mg Tablet) 650 mg PO Q6H PRN PRN Reason: Pain, Mild (Pain Scale 1-3) Albuterol/Ipratropium (Albuterol/Iprat 2.5/0.5mg 3 Ml Ampul.Neb) 3 ml INHALE RQ4H PRN PRN Reason: Shortness of Breath/Wheezing Hydromorphone HCl (Hydromorphone Hcl 0.5 Mg/0.5 Ml Syringe) 0.25 mg IVPUSH Q4H PRN; Protocol PRN Reason: Breakthrough Pain Last Admin: 08/22/21 06:13 Dose: 0.25 mg Documented by: JESENIA Melatonin (Melatonin 3 Mg Tablet) 6 mg PO BEDTIME PRN PRN Reason: Insomnia Pharmacy Consult (Consult Rx Perform Med Rec) 1 each MISCELLANE ONCE PRN PRN Reason: Consult order Senna (Sennosides 8.6 Mg Tablet) 17.2 mg PO BEDTIME PRN PRN Reason: Constipation Sodium Chloride (0.9 % Sodium Chloride Flush 3 Ml Syringe) 3 ml IVFLUSH QSHIFT [place] Last Admin: 08/22/21 07:37 Dose: Not Given Documented by: LORETO Non-Admin Reason: Med Not Available Labs CBC & Chem 7: 08/22/21 05:54 08/22/21 05:54 Labs: Laboratory Results - last 24 hr 08/21/21 08/21/21 08/21/21 16:22 16:22 19:44 MCV 82.7 82.3 MCH 27.0 27.2 MCHC 32.6 33.1 RDW 14.2 14.3 Plt Count 275 284 MPV 9.7 9.8 Immature Gran % (Auto) 0.4 0.7 H Neut % (Auto) 75.8 H 84.1 H Lymph % (Auto) 13.9 L 7.7 L [place] % (Auto) 8.6 6.8 Eos % (Auto) 0.9 0.4 Baso % (Auto) 0.4 0.3 Lymph # (Auto) 1.0 L 0.9 L [place] # (Auto) 0.6 0.8 Eos # (Auto) 0.1 0.1 Baso # (Auto) 0.0 0.0 Abs Immat Gran (auto) 0.03 0.08 H Absolute Neuts (auto) 5.2 10.0 H Absolute Nucleated RBC 0.000 0.000 Nucleated RBC % (auto) 0.0 0.0 Anion Gap 13 Estim Creat Clear Calc 33.8 Estimated GFR 60 Random Glucose 102 Calcium 9.3 COVID-19 (ELSA) COVID-19 Clin Com Blood Type Antibody Screen 08/21/21 08/21/21 08/22/21 21:13 21:14 05:54 MCV 82.6 MCH 26.6 L MCHC 32.3 RDW 14.2 Plt Count 279 MPV 10.3 Immature Gran % (Auto) 0.4 Neut % (Auto) 81.2 H Lymph % (Auto) 8.9 L [place] % (Auto) 8.9 Eos % (Auto) 0.1 Baso % (Auto) 0.5 Lymph # (Auto) 0.9 L [place] # (Auto) 0.9 Eos # (Auto) 0.0 Baso # (Auto) 0.1 Abs Immat Gran (auto) 0.04 H Absolute Neuts (auto) 7.8 Absolute Nucleated RBC 0.000 Nucleated RBC % (auto) 0.0 Anion Gap Estim Creat Clear Calc Estimated GFR Random Glucose Calcium COVID-19 (ELSA) Negative COVID-19 Clin Com See Note Blood Type B Positive Antibody Screen NEGATIVE 08/22/21 05:54 MCV MCH MCHC RDW Plt Count MPV Immature Gran % (Auto) Neut % (Auto) Lymph % (Auto) [place] % (Auto) Eos % (Auto) Baso % (Auto) Lymph # (Auto) [place] # (Auto) Eos # (Auto) Baso # (Auto) Abs Immat Gran (auto) Absolute Neuts (auto) Absolute Nucleated RBC Nucleated RBC % (auto) Anion Gap 18 Estim Creat Clear Calc 37.1 Estimated GFR > 60 Random Glucose 96 Calcium 9.5 COVID-19 (ELSA) COVID-19 Clin Com Blood Type Antibody Screen Assessment and Plan (1) Nocturnal hypoxemia: Status: Acute (2) COPD (chronic obstructive pulmonary disease): Status: Acute (3) Pulmonary hypertension: Status: Acute (4) Anemia: Status: Acute (5) Persistent atrial fibrillation: Status: Acute Assessment and Plan: 81F presented with fall, found to have right hip fracture right hip fracture holding eliquis, check echo, cardio appreciated anemia inflammatory, acute blood loss due to hematoma will transfuse as recommended by cardiology monitor cbc permanent atrial fibrillation cardizem, hold eliquis for suregery, on resumption - decrease to 2.5mg bid (weight, age) copd/severe pulm htn o2 at night inhalers prn AAA ? of leak on CT follow up CTA dvt prophylaxis - mechanical due to hematoma/anemia full code Quality Stroke Does the patient have a stroke diagnosis?: No VTE Prior VTE?: No VTE Risk Level:: Medical - moderate - high VTE Device Contraindication: N/A - Device Ordered VTE Drug Contraindication: Treatment Not Tolerated
--- NOTE | 2021-08-22 10:46 | PM.EVENT ---
Event Note Date of Service: 08/22/21 Event Note: Patient seen at bedside by myself and Dr Cohn. Cardiology also at bedside. Patient has a right intertroch. femur fx. eliarchieis on hold cardiology to order an echo Plan for IMN right femur on Tuesday08/24/[address] Blakely full consult note to follow
--- NOTE | 2021-08-22 10:47 | P.CONOP_ITS ---
History of Present Illness HPI Consult date: 08/22/21 Chief complaint: fall Narrative: Ms. Burt is an 81 yo female who presented to the ED after she sustained a fall at home. She has a PMH of hypertension, hyperlipidemia, ?CHF, AFib on Eliquis. Upon evaluation in the ED, clinical exam and xrays showed a right intertrochanteric fracture of the femur. While in the ED, she was noted to have h/h 7.8/23.9. Due to her PMH and her acute blood loss anemia, she was admitted to the medical service and Orthopedics was consulted for further recommendations. She lives alone. She has a home [employer] few hours a week. She embulates with a walker at baseline. She does most of her ADls on her own. . Review of Systems Review of Systems: Yes all other systems are reviewed and are negative [facility] Past Medical History Medical History (Updated 08/23/21 @ 19:41 by Armando Darden PA-C) AAA (abdominal aortic aneurysm) Complete heart block COPD (chronic obstructive pulmonary disease) HTN (hypertension) Nocturnal hypoxemia Persistent atrial fibrillation Pulmonary hypertension Surgical History Surgical History (Updated 08/22/21 @ 07:26 by Tyson Pratt MD) Pacemaker Social History Social History Household Members: None Housing: Apartment Do you presently have visiting nurse or other home services: Yes (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) Patient Tobacco Use Status: Current everyday Tobacco user Tobacco use type: Cigarette Cigarette Packs Per Day: 0.5 Cigarettes Per Day: 10.0 e-Cigarette/Vaping Use: Never Used Advance Directives Date on File: 08/22/21 service: No Current occupational status: retired Meds Allergies Allergy/AdvReac Type Severity Reaction Status Date / Time amoxicillin [Amoxicillin] Allergy Severe NAUSEA/VOMI Unverified 07/24/20 15:28 TING aspirin [Aspirin] Allergy Severe GASTRITIS Unverified 07/24/20 15:28 ibuprofen [Ibuprofen] Allergy Severe GASTRITIS Unverified 07/24/20 15:28 Erythromycin Allergy Unknown Unverified 06/13/20 00:00 Motrin Allergy Unknown Unverified 06/13/20 00:00 erythromycin base AdvReac Severe HEADACHES Unverified 07/24/20 15:28 [Erythromycin Base] Active Medications: Current Medications Acetaminophen (Acetaminophen 325 Mg Tablet) 650 mg PO Q6H PRN PRN Reason: Pain, Mild (Pain Scale 1-3) Albuterol/Ipratropium (Albuterol/Iprat 2.5/0.5mg 3 Ml Ampul.Neb) 3 ml INHALE RQ4H PRN PRN Reason: Shortness of Breath/Wheezing Hydromorphone HCl (Hydromorphone Hcl 0.5 Mg/0.5 Ml Syringe) 0.25 mg IVPUSH Q4H PRN; Protocol PRN Reason: Breakthrough Pain Last Admin: 08/22/21 06:13 Dose: 0.25 mg Documented by: Melatonin (Melatonin 3 Mg Tablet) 6 mg PO BEDTIME PRN PRN Reason: Insomnia Pharmacy Consult (Consult Rx Perform Med Rec) 1 each MISCELLANE ONCE PRN PRN Reason: Consult order Senna (Sennosides 8.6 Mg Tablet) 17.2 mg PO BEDTIME PRN PRN Reason: Constipation Sodium Chloride (0.9 % Sodium Chloride Flush 3 Ml Syringe) 3 ml IVFLUSH QSHIFT [facility] Last Admin: 08/22/21 07:37 Dose: Not Given Documented by: Home Medications Medication Instructions Recorded Confirmed Last Taken Type apixaban 5 mg tablet (Eliquis) 5 mg PO BID 08/21/21 08/21/21 Unknown History clonazepam 0.5 mg tablet 0.5 mg PO BEDTIME 08/21/21 08/22/21 Unknown History diltiazem HCl 180 mg 180 mg PO DAILY 08/21/21 08/22/21 Unknown History capsule,extended release 24 hr, controlled docusate sodium 100 mg capsule 100 mg PO BID 08/21/21 08/22/21 Unknown History duloxetine 20 mg capsule,delayed 20 mg PO BID 08/21/21 08/22/21 Unknown History release famotidine 20 mg tablet 20 mg PO BID 08/21/21 08/22/21 Unknown History fenofibrate nanocrystallized 145 145 mg PO DAILY 08/21/21 08/22/21 Unknown History mg tablet furosemide 20 mg tablet 40 mg PO DAILY 08/21/21 08/22/21 Unknown History hydralazine 50 mg tablet 50 mg PO TID 08/21/21 08/22/21 Unknown History melatonin 3 mg tablet 3 mg PO BEDTIME 08/21/21 08/22/21 Unknown History oxycodone 5 mg tablet 5 mg PO Q6H 08/21/21 08/22/21 Unknown History ropinirole 0.25 mg tablet 0.25 mg PO BID 08/21/21 08/22/21 Unknown History sennosides 8.6 mg tablet (senna) 8.6 mg PO BEDTIME 08/21/21 08/22/21 Unknown History simvastatin 20 mg tablet 20 mg PO BEDTIME 08/21/21 08/22/21 Unknown History zolpidem 10 mg tablet 10 mg PO BEDTIME 08/21/21 08/22/21 Unknown History arformoterol 15 mcg/2 mL solution 2 ml INHALATION BID 08/22/21 08/22/21 Unknown History for nebulization (Brovana) lisinopril 30 mg tablet 30 mg PO DAILY 08/22/21 08/22/21 Unknown History Physical Exam Vital Signs: Vital Signs: Last Vital Signs Temp 99.1 F 08/21/21 23:55 Pulse 90 08/22/21 04:00 Resp 16 08/22/21 04:00 BP 149/56 H 08/22/21 04:00 Pulse Ox 94 08/22/21 04:00 Body Mass Index 17.2 Const: General: cooperative, healthy appearing, comfortable, no acute distress, well developed and alert Orientation/consciousness: patient oriented x3 HENMT: Head: Yes normal to inspection, Yes normocephalic and Yes atraumatic Eyes: General: appearance normal, both eyes and all related structures Neck: Neck: Yes normal visual inspection and Yes no lymphadenopathy Resp: Effort & Inspection: normal respiratory effort and able to speak in complete sentences Cardio: Rate: regular rate Peripheral pulses: Peripheral pulses 2+ throughout GI: Inspection: Yes normal to inspection Palpation (GI): Soft to palpation Skin: General skin exam: no rashes or lesions noted Neuro: General: patient oriented x3 Extrem: Other: Right lower extremity skin intact, no open wounds or lacerations. Pain to the lateral aspect of the hip with palpation and pain with log roll. Unable to SLR. NVi. Psych: Appearance: grossly normal Mental Status: mental status grossly normal Results Labs Result Diagrams: 08/23/21 06:31 08/23/21 06:31 Labs: Abnormal lab results 08/21/21 08/21/21 08/21/21 Range/Units 16:22 16:22 19:44 WBC 11.9 H (4.8-10.8) X10*3/uL RBC 2.89 L 2.94 L (4.20-5.50) X10*6/uL Hgb 7.8 L 8.0 L (12.0-16.0) g/dl Hct 23.9 L 24.2 L (37-47) % MCH (27.0-33.0) pg Immature Gran % (Auto) 0.7 H (0.0-0.4) % Neut % (Auto) 75.8 H 84.1 H (45-73) % Lymph % (Auto) 13.9 L 7.7 L (20-40) % Lymph # (Auto) 1.0 L 0.9 L (1.2-4.9) X10*3/uL Abs Immat Gran (auto) 0.08 H (0.00-0.03) X10*3/uL Absolute Neuts (auto) 10.0 H (2.0-8.3) X10*3/uL Carbon Dioxide 31 H (22-29) mmol/L 08/22/21 Range/Units 05:54 WBC (4.8-10.8) X10*3/uL RBC 3.04 L (4.20-5.50) X10*6/uL Hgb 8.1 L (12.0-16.0) g/dl Hct 25.1 L (37-47) % MCH 26.6 L (27.0-33.0) pg Immature Gran % (Auto) (0.0-0.4) % Neut % (Auto) 81.2 H (45-73) % Lymph % (Auto) 8.9 L (20-40) % Lymph # (Auto) 0.9 L (1.2-4.9) X10*3/uL Abs Immat Gran (auto) 0.04 H (0.00-0.03) X10*3/uL Absolute Neuts (auto) (2.0-8.3) X10*3/uL Carbon Dioxide (22-29) mmol/L H & H 08/21/21 08/21/21 08/22/21 Range/Units 16:22 19:44 05:54 Hgb 7.8 L 8.0 L 8.1 L (12.0-16.0) g/dl Hct 23.9 L 24.2 L 25.1 L (37-47) % All other labs normal. Diagnostic results Hip x-ray: image reviewed (intertrochanteric fx right femur ) Assessment and Plan (1) Intertrochanteric fracture of right femur: Status: Acute I discussed the case with Dr Blakely and explained the extent of the inj ury to the patient and options available which include surgical intervention. I explained the procedure in detail along with the length of recovery and rehab course. I explained the risk, benefits and alternatives. Risk including, but not limited to infection, blood clots, bleeding, non union or malunion and nerve/tissue damage to surrounding areas. I answered all their questions and with their understanding they have consented to move forward with Operative Fixation of the right hip . The patient will be T&S, med clearance / cardiac clearance obtained and NPO after midnight. Procedures Date of Service Date of Service: 08/22/21
--- NOTE | 2021-08-22 12:23 | PC.NURSE ---
Pt is getting a bedside echo at this time. Blood is tranfusing with no sign of reaction. Pt has been medicated for pain and is managing it well. Pt to be NPO after midnight on tuesday for scheduled surgery on tuesday
--- NOTE | 2021-08-22 13:00 | CA_ITS ---
Transthoracic Echocardiogram Patient (Last, First, Middle): Zofia Burt A Gender: Female Date of : 1940 Age: 81 Procedure Date: 08/22/2021 Procedure Type: Transthoracic Echocardiogram Location: ER Height: 160.02 cm Weight: 45.36 kg BSA: 1.44 m2 Heart Rate: bpm BP: 149 / 56 mmHg Ticket Manager: Referring MD: Isiah Prescott MD Shoe Repairer: Isiah Prescott MD Symptoms: Preoperative cardiovascular exam Study Quality: Fair ECG Rhythm: Sinus with extra beats Conclusions: - 1. Normal LV systolic function with impaired relaxation filling pattern 2. Normal cardiac valvular Doppler 3. Moderately elevated right ventricular systolic pressure 4. No gross pericardial effusion Findings Left Ventricle Normal left ventricular size, thickness, and systolic function. The visually estimated ejection fraction is between 55-60%. There is paradoxical septal motion consistent with a right ventricular pacemaker. Spectral Doppler is indicative of an impaired relaxation filling pattern. E/E prime ratio is between 8 and 15 consistent with indeterminate filling pressures. Right Ventricle Normal right ventricular cavity size and systolic function. There is a pacemaker wire seen in the right ventricle. Atria The left atrium is normal in size. Interatrial shunt cannot be excluded. The right atrium is normal in size. A pacemaker wire is identified in the right atrium. Aortic Valve Normal aortic valve structure and function. There is no aortic valve stenosis. There is no aortic valve regurgitation. Mitral Valve There is mild anterior and posterior mitral leaflet thickening. There is trace mitral valve regurgitation. There is no mitral valve stenosis. Pulmonic Valve The pulmonic valve was not well visualized. Tricuspid Valve Likely normal tricuspid valve structure and function. There is mild tricuspid valve regurgitation. Normal right atrial pressure. Moderate pulmonary hypertension is present. Great Vessels All visible segments of the aorta are normal in size. The pulmonary artery was not well visualized. Venous The inferior vena cava is normal in size and collapses greater than 50% with inspiration. Pericardium/Pleural There is no evidence of pericardial effusion. Prior Study Comparison Changes noted compared to prior study dated: 08/15/2020. RV systolic pressure measured on this study are lower Measurements 2D Linear Measurements IVSd: 1.10 0.6-0.9/0.6-1.0 cm LVIDd: 3.58 3.9-5.3/4.2-5.9 cm LVIDd Index: 2.49 2.4-3.2/2.2-3.1 cm/m2 LVIDs: 2.55 2.0-3.6 cm LVPWd: 1.05 0.7-1.1 cm Ao Root: 3.10 2.1-3.5 cm LA Diam: 2.50 2.7-3.8/3.0-4.0 cm LAIDs Index: 1.74 1.5-2.3 cm/m2 LV Mass: 147.94 67-162/88-224 g LV Mass Index: 102.74 43-95/49-115 g/m2 LVOT Diam: 1.90 3.0+(-)1.3 cm Mitral Valve MV Pk E: 0.99 MV PK A: 1.11 MV Decel Time: 87.00 E/A: 0.90 E'Lateral: 11.90 E'Medial: 9.90 E/E' Med: 10.00 E/E' Lat: 8.30 PHT: 26.00 MVA PHT: 8.[address] [place]: 11.53 Aortic Valve AoV Pk Ajit: 1.56 AoV Mn Ajit: 0.97 AoV VTI: 0.33 AoV Pk Grad: 10.00 Aov Mn Grad: 5.00 KRISTY Cont.VTI: 1.46 LVOT LVOT Pk Ajit: 0.74 LVOT Mn Ajit: 0.45 LVOT VTI: 0.17 LVOT Pk Grad: 2.00 LVOT Mn Grad: 1.00 LVOT Diam: 1.90 LVOT Area: 2.84 Diastolic Function MV Pk E: 0.99 MV Pk A: 1.11 E/A: 0.90 E'Medial: 9.90 E/E' Med: 10.00 E' Laterial: 11.90 E/E' Lat: 8.30 Tricuspid Valve TR Pk Ajit: 3.43 TR Pk Grad: 47.00 RA Press: 3.00 RVSP: 50.00 Great Vessels Aorta Ao Root-2D: 3.10 2.0-3.7 cm Pulmonary Valve PV Pk Ajit: 1.30 Peak PV Grad: 7.00 Updated in Other Vendor System with Status of Final Isiah Prescott MD electronically signed on 08/22/2021 1:56:31 PM with status of Final
--- NOTE | 2021-08-22 15:29 | PHA.MEDREC ---
Pharmacy Consult ? Medication Reconciliation Pharmacy has completed the medication reconciliation. Med List per Javier Jacob. Pt uses [facility] for pill pack services
[2021-08-22] MEDS: oxyCODONE HCl Immed Release 5 MG TABLET PO (18:34)
[2021-08-22] MEDS: 0.9 % Sodium Chloride Flush 3 ML SYRINGE IVFLUSH (20:20)
[2021-08-22] MEDS: Zolpidem Tartrate 5 MG TABLET PO (20:20)
[2021-08-22] MEDS: clonazePAM 0.5 MG TABLET PO (20:20)
[2021-08-22] MEDS: hydrALAZINE HCl 50 MG TABLET PO (20:20)
[2021-08-22] MEDS: Sennosides 8.6 MG TABLET PO (20:20)
[2021-08-22] MEDS: DULoxetine HCl 20 MG CAPSULE.DR PO (20:20)
[2021-08-22] MEDS: Atorvastatin Calcium 10 MG TABLET PO (20:20)
[2021-08-22] MEDS: rOPINIRole HCL 0.25 MG TABLET PO (20:20)
[2021-08-22] MEDS: Melatonin 3 MG TABLET PO (20:20)
[2021-08-23] VITALS (9 sets, daily range): BP systolic 135–164; BP diastolic 59–73; PULSE 60–87; RESP 16–20; TEMP 36.9–37.4; O2SAT 91–94
[2021-08-23] MEDS: oxyCODONE HCl Immed Release 5 MG TABLET PO ×3 (03:55→16:26)
[2021-08-23 07:23] LABS: Hematocrit 29.4 % (37-47); Hemoglobin 9.6 g/dl (12.0-16.0); Mean Corpuscular HGB Conc 32.7 g/dl (31.0-35.0); Mean Corpuscular Hemoglobin 26.6 pg (27.0-33.0); Mean Corpuscular Volume 81.4 fL (80-98); Platelet Count 249 X10*3/uL (160-400); Red Blood Count 3.61 X10*6/uL (4.20-5.50); Red Cell Distribution Width 14.5 % (11.0-16.0); White Blood Count 10.5 X10*3/uL (4.8-10.8)
[2021-08-23 07:45] LABS: Anion Gap 13 (12-20); Blood Urea Nitrogen 15 mg/dL (9-16); Calcium 9.4 mg/dL (8.4-10.2); Carbon Dioxide 29 mmol/L (22-29); Chloride 102 mmol/L (96-108); Creatinine Clr Calc Pharmacy 39.6; Estimated Glomerular Filt Rate > 60; Glucose Fasting 128 mg/dL (60-99); Potassium 4.4 mmol/L (3.3-5.1); Sodium 140 mmol/L (135-145)
[2021-08-23] MEDS: dilTIAZem HCL CD 180 MG CAP.ER.24H PO (08:54)
[2021-08-23] MEDS: Famotidine 20 MG TABLET PO (08:54)
[2021-08-23] MEDS: DULoxetine HCl 20 MG CAPSULE.DR PO ×2 (08:54→21:04)
[2021-08-23] MEDS: rOPINIRole HCL 0.25 MG TABLET PO ×2 (08:54→21:04)
[2021-08-23] MEDS: hydrALAZINE HCl 50 MG TABLET PO ×3 (08:54→21:05)
[2021-08-23] MEDS: Fenofibrate,Micronized 134 MG CAPSULE PO (08:54)
[2021-08-23] MEDS: lisinopriL 10 MG TABLET 30 MG PO (08:54)
[2021-08-23] MEDS: HYDROmorphone HCl 0.5 MG/0.5 ML SYRINGE 0.25 MG IVPUSH (08:55)
[2021-08-23] MEDS: 0.9 % Sodium Chloride Flush 3 ML SYRINGE IVFLUSH ×3 (08:55→21:06)
--- NOTE | 2021-08-23 10:26 | P.PNIM_ITS ---
Subjective Subjective Date of Service: 08/23/21 Interval History: Interval History:?cc: fall interval history: hip pain Cardiovascular Cardiovascular: Reports no additional cardiovascular complaints Respiratory Respiratory: Reports no additional respiratory complaints Physical Exam Vital Signs: Vital Signs: Last Vital Signs Temp 99.3 F 08/23/21 07:53 Pulse 87 08/23/21 08:54 Resp 18 08/23/21 07:53 BP 150/73 H 08/23/21 08:54 Pulse Ox 92 08/23/21 07:53 Body Mass Index 17.2 General: AO X 3, no acute distress, frail appearing Resp:? diminished, no accessory muscles used CVS: S1,S2,RRR GI: soft, non tender, non distended Neuro:? motor grossly intact, alert Psych: appropriate affect, appropriate insight? Objective Data Active Medications Acetaminophen (Acetaminophen 325 Mg Tablet) 650 mg PO Q6H PRN PRN Reason: Pain, Mild (Pain Scale 1-3) Albuterol/Ipratropium (Albuterol/Iprat 2.5/0.5mg 3 Ml Ampul.Neb) 3 ml INHALE RQ4H PRN PRN Reason: Shortness of Breath/Wheezing Atorvastatin Calcium (Atorvastatin Calcium 10 Mg Tablet) 10 mg PO BEDTIME [facility] Last Admin: 08/22/21 20:20 Dose: 10 mg Documented by: KAITLYNN Clonazepam (Clonazepam 0.5 Mg Tablet) 0.5 mg PO BEDTIME [facility] Last Admin: 08/22/21 20:20 Dose: 0.5 mg Documented by: KAITLYNN Diltiazem HCl (Diltiazem Hcl Cd 180 Mg Cap.Er.24h) 180 mg PO DAILY [facility]; Protocol Last Admin: 08/23/21 08:54 Dose: 180 mg Documented by: JORDANA Duloxetine HCl (Duloxetine Hcl 20 Mg Capsule.Dr) 20 mg PO BID [facility] Last Admin: 08/23/21 08:54 Dose: 20 mg Documented by: JORDANA Famotidine (Famotidine 20 Mg Tablet) 20 mg PO DAILY [facility] Last Admin: 08/23/21 08:54 Dose: 20 mg Documented by: JORDANA Fenofibrate (Fenofibrate,Micronized 134 Mg Capsule) 134 mg PO DAILY [facility] Last Admin: 08/23/21 08:54 Dose: 134 mg Documented by: JORDANA Hydralazine HCl (Hydralazine Hcl 50 Mg Tablet) 50 mg PO TID [facility]; Protocol Last Admin: 08/23/21 08:54 Dose: 50 mg Documented by: JORDANA Hydromorphone HCl (Hydromorphone Hcl 0.5 Mg/0.5 Ml Syringe) 0.25 mg IVPUSH Q4H PRN; Protocol PRN Reason: Breakthrough Pain Last Admin: 08/23/21 08:55 Dose: 0.25 mg Documented by: JORDANA Lisinopril (Lisinopril 10 Mg Tablet) 30 mg PO DAILY [facility]; Protocol Last Admin: 08/23/21 08:54 Dose: 30 mg Documented by: JORDANA Melatonin (Melatonin 3 Mg Tablet) 6 mg PO BEDTIME PRN PRN Reason: Insomnia Melatonin (Melatonin 3 Mg Tablet) 3 mg PO BEDTIME [facility] Last Admin: 08/22/21 20:20 Dose: 3 mg Documented by: KAITLYNN Oxycodone HCl (Oxycodone Hcl Immed Release 5 Mg Tablet) 5 mg PO Q6H [facility] Last Admin: 08/23/21 03:55 Dose: 5 mg Documented by: KAITLYNN Pharmacy Consult (Consult Rx Perform Med Rec) 1 each MISCELLANE ONCE PRN PRN Reason: Consult order Ropinirole HCl (Ropinirole Hcl 0.25 Mg Tablet) 0.25 mg PO BID [facility] Last Admin: 08/23/21 08:54 Dose: 0.25 mg Documented by: JORDANA Senna (Sennosides 8.6 Mg Tablet) 17.2 mg PO BEDTIME PRN PRN Reason: Constipation Senna (Sennosides 8.6 Mg Tablet) 8.6 mg PO BEDTIME [facility] Last Admin: 08/22/21 20:20 Dose: 8.6 mg Documented by: KAITLYNN Sodium Chloride (0.9 % Sodium Chloride Flush 3 Ml Syringe) 3 ml IVFLUSH QSHIFT [facility] Last Admin: 08/23/21 08:55 Dose: 3 ml Documented by: JORDANA Zolpidem Tartrate (Zolpidem Tartrate 5 Mg Tablet) 5 mg PO BEDTIME [facility] Last Admin: 08/22/21 20:20 Dose: 5 mg Documented by: KAITLYNN Labs CBC & Chem 7: 08/23/21 06:31 08/23/21 06:31 Labs: Laboratory Results - last 24 hr 08/21/21 08/23/21 08/23/21 21:13 06:31 06:31 MCV 81.4 MCH 26.6 L MCHC 32.7 RDW 14.5 Plt Count 249 MPV 10.0 Absolute Nucleated RBC 0.000 Nucleated RBC % (auto) 0.0 Anion Gap 13 Estim Creat Clear Calc 39.6 Estimated GFR > 60 Fasting Glucose 128 H Calcium 9.4 Blood Type B Positive Antibody Screen NEGATIVE Crossmatch See Detail Assessment and Plan (1) Nocturnal hypoxemia: Status: Acute (2) COPD (chronic obstructive pulmonary disease): Status: Acute (3) Pulmonary hypertension: Status: Acute (4) Anemia: Status: Acute (5) Persistent atrial fibrillation: Status: Acute Assessment and Plan: 81F presented with fall, found to have right hip fracture right hip fracture holding eliquis, echo with normal EF, impaired relaxation plan for IMN 08/24/21, npo after midnight anemia inflammatory, acute blood loss due to hematoma s/p transfusion, hgb stable, 9.6 permanent atrial fibrillation cardizem, hold eliquis for surgery, on resumption - decrease to 2.5mg bid (weight, age) copd/severe pulm htn o2 at night inhalers prn AAA ? of leak on CT follow up CTA report dvt prophylaxis - mechanical due to hematoma/anemia full code Quality Stroke Does the patient have a stroke diagnosis?: No VTE Prior VTE?: No VTE Risk Level:: Medical - moderate - high VTE Device Contraindication: N/A - Device Ordered VTE Drug Contraindication: Treatment Not Tolerated
--- NOTE | 2021-08-23 13:17 | MHC.CM.PN ---
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 IMM DELIVERED CURRENTLY DC PLAN IS TBD PENDING PT ANEESH PT REPORTS SHE WOULD LIKE TO DC HOME WITH RESUMPTION OF CAT DRIVER AND NEW PT.
[2021-08-23] MEDS: Acetaminophen 325 MG TABLET 650 MG PO (21:02)
[2021-08-23] MEDS: clonazePAM 0.5 MG TABLET PO (21:04)
[2021-08-23] MEDS: Zolpidem Tartrate 5 MG TABLET PO (21:05)
[2021-08-23] MEDS: Atorvastatin Calcium 10 MG TABLET PO (21:05)
[2021-08-23] MEDS: Sennosides 8.6 MG TABLET PO (21:05)
[2021-08-23] MEDS: Melatonin 3 MG TABLET PO (21:05)
[2021-08-24] VITALS (23 sets, daily range): BP systolic 119–177; BP diastolic 41–79; PULSE 66–74; RESP 14–20; TEMP 36.1–37.5; O2SAT 92–100; BMI 17.2
[2021-08-24] MEDS: oxyCODONE HCl Immed Release 5 MG TABLET PO ×3 (00:16→18:34)
[2021-08-24] MEDS: HYDROmorphone HCl 0.5 MG/0.5 ML SYRINGE 0.25 MG IVPUSH ×3 (06:00→19:10)
[2021-08-24 06:58] LABS: INTERNATIONAL NORM RATIO 1.1 (0.9-1.1); Prothrombin Time 12.2 SEC (9.9-13.0)
[2021-08-24 07:00] LABS: Hemoglobin 9.1 g/dl (12.0-16.0); Mean Corpuscular HGB Conc 32.5 g/dl (31.0-35.0); Mean Corpuscular Hemoglobin 26.7 pg (27.0-33.0); Mean Corpuscular Volume 82.1 fL (80-98); Mean Platelet Volume 9.7 fL (9.4-12.3); Platelet Count 227 X10*3/uL (160-400); Red Blood Count 3.41 X10*6/uL (4.20-5.50); Red Cell Distribution Width 14.6 % (11.0-16.0); White Blood Count 9.1 X10*3/uL (4.8-10.8)
[2021-08-24 07:01] LABS: Partial Thromboplastin Time 32.1 SEC (24.1-38.0)
[2021-08-24 07:22] LABS: Anion Gap 10 (12-20); Blood Urea Nitrogen 18 mg/dL (9-16); Calcium 9.1 mg/dL (8.4-10.2); Carbon Dioxide 31 mmol/L (22-29); Chloride 101 mmol/L (96-108); Creatinine Clr Calc Pharmacy 37.7; Estimated Glomerular Filt Rate > 60; Glucose Fasting 116 mg/dL (60-99); Potassium 4.1 mmol/L (3.3-5.1); Sodium 138 mmol/L (135-145)
[2021-08-24] MEDS: hydrALAZINE HCl 50 MG TABLET PO ×2 (11:03→21:41)
[2021-08-24] MEDS: DULoxetine HCl 20 MG CAPSULE.DR PO ×2 (11:03→21:42)
[2021-08-24] MEDS: dilTIAZem HCL CD 180 MG CAP.ER.24H PO (11:03)
[2021-08-24] MEDS: lisinopriL 10 MG TABLET 30 MG PO (11:03)
[2021-08-24] MEDS: 0.9 % Sodium Chloride Flush 3 ML SYRINGE IVFLUSH (11:05)
--- NOTE | 2021-08-24 11:29 | MHC.CM.PN ---
Per ROUNDS discussion, Patient is having surgery here today for a fractured hip and will likely require STR (need PT eval); CM will follow.
--- NOTE | 2021-08-24 11:31 | P.PNIM_ITS ---
Subjective Subjective Date of Service: 08/24/21 Interval History: cc: fall, hip pain interval history: still having pain Cardiovascular Cardiovascular: Reports no additional cardiovascular complaints Respiratory Respiratory: Reports no additional respiratory complaints Physical Exam Vital Signs: Vital Signs: Last Vital Signs Temp 98 F 08/24/21 11:11 Pulse 73 08/24/21 11:11 Resp 19 08/24/21 11:11 BP 160/77 H 08/24/21 11:11 Pulse Ox 99 08/24/21 11:11 Body Mass Index 17.2 General: AO X 3, no acute distress, frail appearing Resp:? diminished, no accessory muscles used CVS: S1,S2,RRR GI: soft, non tender, non distended Neuro:? motor grossly intact, alert Psych: appropriate affect, appropriate insight? Objective Data Active Medications Acetaminophen (Acetaminophen 325 Mg Tablet) 650 mg PO Q6H PRN PRN Reason: Pain, Mild (Pain Scale 1-3) Last Admin: 08/23/21 21:02 Dose: 650 mg Documented by: JOHN Albuterol/Ipratropium (Albuterol/Iprat 2.5/0.5mg 3 Ml Ampul.Neb) 3 ml INHALE RQ4H PRN PRN Reason: Shortness of Breath/Wheezing Atorvastatin Calcium (Atorvastatin Calcium 10 Mg Tablet) 10 mg PO BEDTIME [facility] Last Admin: 08/23/21 21:05 Dose: 10 mg Documented by: JOHN Clonazepam (Clonazepam 0.5 Mg Tablet) 0.5 mg PO BEDTIME [facility] Last Admin: 08/23/21 21:04 Dose: 0.5 mg Documented by: JOHN Diltiazem HCl (Diltiazem Hcl Cd 180 Mg Cap.Er.24h) 180 mg PO DAILY [facility]; Protocol Last Admin: 08/24/21 11:03 Dose: 180 mg Documented by: STIVEN Duloxetine HCl (Duloxetine Hcl 20 Mg Capsule.Dr) 20 mg PO BID [facility] Last Admin: 08/24/21 11:03 Dose: 20 mg Documented by: STIVEN Famotidine (Famotidine 20 Mg Tablet) 20 mg PO DAILY [facility] Last Admin: 08/24/21 11:04 Dose: Not Given Documented by: STIVEN Non-Admin Reason: npo. presurg Fenofibrate (Fenofibrate,Micronized 134 Mg Capsule) 134 mg PO DAILY [facility] Last Admin: 08/24/21 11:05 Dose: Not Given Documented by: STIVEN Non-Admin Reason: npo. presurg. Hydralazine HCl (Hydralazine Hcl 50 Mg Tablet) 50 mg PO TID [facility]; Protocol Last Admin: 08/24/21 11:03 Dose: 50 mg Documented by: STVIEN Hydromorphone HCl (Hydromorphone Hcl 0.5 Mg/0.5 Ml Syringe) 0.25 mg IVPUSH Q4H PRN; Protocol PRN Reason: Breakthrough Pain Last Admin: 08/24/21 06:00 Dose: 0.25 mg Documented by: JOHN Lisinopril (Lisinopril 10 Mg Tablet) 30 mg PO DAILY [facility]; Protocol Last Admin: 08/24/21 11:03 Dose: 30 mg Documented by: STIVEN Melatonin (Melatonin 3 Mg Tablet) 6 mg PO BEDTIME PRN PRN Reason: Insomnia Melatonin (Melatonin 3 Mg Tablet) 3 mg PO BEDTIME [facility] Last Admin: 08/23/21 21:05 Dose: 3 mg Documented by: JOHN Oxycodone HCl (Oxycodone Hcl Immed Release 5 Mg Tablet) 5 mg PO Q6H [facility] Last Admin: 08/24/21 11:04 Dose: 5 mg Documented by: STIVEN Pharmacy Consult (Consult Rx Perform Med Rec) 1 each MISCELLANE ONCE PRN PRN Reason: Consult order Ropinirole HCl (Ropinirole Hcl 0.25 Mg Tablet) 0.25 mg PO BID [facility] Last Admin: 08/24/21 11:04 Dose: Not Given Documented by: STIVEN Non-Admin Reason: NPO. presurg Senna (Sennosides 8.6 Mg Tablet) 17.2 mg PO BEDTIME PRN PRN Reason: Constipation Senna (Sennosides 8.6 Mg Tablet) 8.6 mg PO BEDTIME [facility] Last Admin: 08/23/21 21:05 Dose: 8.6 mg Documented by: JOHN Sodium Chloride (0.9 % Sodium Chloride Flush 3 Ml Syringe) 3 ml IVFLUSH QSHIFT [facility] Last Admin: 08/24/21 11:05 Dose: 3 ml Documented by: STIVEN Zolpidem Tartrate (Zolpidem Tartrate 5 Mg Tablet) 5 mg PO BEDTIME [facility] Last Admin: 08/23/21 21:05 Dose: 5 mg Documented by: JOHN Labs CBC & Chem 7: 08/24/21 06:38 08/24/21 06:38 Labs: Laboratory Results - last 24 hr 08/24/21 08/24/21 08/24/21 06:38 06:38 06:38 MCV 82.1 MCH 26.7 L MCHC 32.5 RDW 14.6 Plt Count 227 MPV 9.7 Absolute Nucleated RBC 0.000 Nucleated RBC % (auto) 0.0 PT 12.2 INR 1.1 APTT 32.1 Anion Gap 10 L Estim Creat Clear Calc 37.7 Estimated GFR > 60 Fasting Glucose 116 H Calcium 9.1 Assessment and Plan (1) Nocturnal hypoxemia: Status: Acute (2) COPD (chronic obstructive pulmonary disease): Status: Acute (3) Pulmonary hypertension: Status: Acute (4) Anemia: Status: Acute (5) Persistent atrial fibrillation: Status: Acute Assessment and Plan: 81F presented with fall, found to have right hip fracture right hip fracture holding eliquis, echo with normal EF, impaired relaxation plan for IMN today, 08/24/21 anemia inflammatory, acute blood loss due to hematoma s/p transfusion, hgb stable, 9.1 permanent atrial fibrillation cardizem, hold eliquis for surgery, on resumption - decrease to 2.5mg bid (weight, age) copd/severe pulm htn o2 at night inhalers prn AAA no leak on cta dvt prophylaxis - mechanical due to hematoma/anemia full code Quality Stroke Does the patient have a stroke diagnosis?: No VTE Prior VTE?: No VTE Risk Level:: Medical - moderate - high VTE Device Contraindication: N/A - Device Ordered VTE Drug Contraindication: Treatment Not Tolerated
--- NOTE | 2021-08-24 13:21 | MHC.CLN ---
PT IS MODERATELY MALNOURISHED PT WITH MILDLY DEPLETED SUBCUTANEOUS FAT AND MUSCLE MASS, BMI 17.2 AND 9% NONSIGNIFICANT WT LOSS X 1 YEAR. PT REPORTS HER APPETITE IS GREAT HOWEVER PT DOES ACKNOWLEDGE SOME SLOW WT LOSS OVER THE PAST YEAR. PREVIOUS WT REVEALS 109# (07/2020) DIET IS CURRENTLY NPO-AWAITING SX PT RECEPTIVE TO DRINKING ENSURE (PREFERS CLAUDETTE) BID TO INCREASE KCALS SUPP TO PROVIDE 700KCALS, 40G PROTEIN MONITOR PO INTAKE CLOSELY SEE ALSO CLINICAL NUTRITION ASSESSMENT
--- NOTE | 2021-08-24 15:06 | HO.ANESPROP2 ---
HPI - Anesthesia Eval Consult details Narrative: 81 yo female for IM nailing Right femur PMFSH Active Problems Active Problems: All Active Problems (Updated 08/23/21 @ 19:41 by Armando Darden PA-C) Intertrochanteric fracture of right femur (Acute) Preoperative cardiovascular examination (Acute) Nocturnal hypoxemia (Acute) HTN (hypertension) (Acute) COPD (chronic obstructive pulmonary disease) (Acute) Pulmonary hypertension (Acute) Acute blood loss anemia (Acute) Closed hip fracture (Acute) Anemia (Acute). Hct 25 on admission. S/p 1 unit PRBC 08/22/21. Hct now 28. Persistent atrial fibrillation (Acute) Pacemaker Past Medical History Medical History (Updated 08/23/21 @ 19:41 by Armando Darden PA-C) AAA (abdominal aortic aneurysm) Complete heart block COPD (chronic obstructive pulmonary disease) HTN (hypertension) Nocturnal hypoxemia Persistent atrial fibrillation Pulmonary hypertension Family History Family history of problems with anesthesia: No Surgical History Surgical History (Updated 08/22/21 @ 07:26 by Tyson Pratt MD) Pacemaker History of Problems with Anesthesia: No Social History Social History Household Members: None Housing: Apartment Do you presently have visiting nurse or other home services: Yes (market gardener for housework) Patient Tobacco Use Status: Current everyday Tobacco user Tobacco use type: Cigarette Cigarette Packs Per Day: 0.5 Cigarettes Per Day: 8 Years Smoked: 72 e-Cigarette/Vaping Use: Never Used Advance Directives Date on File: 08/22/21 service: No Current occupational status: retired Meds Allergies Allergy/AdvReac Type Severity Reaction Status Date / Time amoxicillin [Amoxicillin] Allergy Severe NAUSEA/VOMI Unverified 07/24/20 15:28 TING aspirin [Aspirin] Allergy Severe GASTRITIS Unverified 07/24/20 15:28 ibuprofen [Ibuprofen] Allergy Severe GASTRITIS Unverified 07/24/20 15:28 Erythromycin Allergy Unknown Unverified 06/13/20 00:00 Motrin Allergy Unknown Unverified 06/13/20 00:00 erythromycin base AdvReac Severe HEADACHES Unverified 07/24/20 15:28 [Erythromycin Base] Active Medications: Current Medications Acetaminophen (Acetaminophen 325 Mg Tablet) 650 mg PO Q6H PRN PRN Reason: Pain, Mild (Pain Scale 1-3) Last Admin: 08/23/21 21:02 Dose: 650 mg Documented by: Albuterol/Ipratropium (Albuterol/Iprat 2.5/0.5mg 3 Ml Ampul.Neb) 3 ml INHALE RQ4H PRN PRN Reason: Shortness of Breath/Wheezing Atorvastatin Calcium (Atorvastatin Calcium 10 Mg Tablet) 10 mg PO BEDTIME [facility] Last Admin: 08/23/21 21:05 Dose: 10 mg Documented by: Clonazepam (Clonazepam 0.5 Mg Tablet) 0.5 mg PO BEDTIME [facility] Last Admin: 08/23/21 21:04 Dose: 0.5 mg Documented by: Diltiazem HCl (Diltiazem Hcl Cd 180 Mg Cap.Er.24h) 180 mg PO DAILY [facility]; Protocol Last Admin: 08/24/21 11:03 Dose: 180 mg Documented by: Duloxetine HCl (Duloxetine Hcl 20 Mg Capsule.Dr) 20 mg PO BID [facility] [place] Last Admin: 08/24/21 11:03 Dose: 20 mg Documented by: Famotidine (Famotidine 20 Mg Tablet) 20 mg PO DAILY [facility] Last Admin: 08/24/21 11:04 Dose: Not Given Documented by: Fenofibrate (Fenofibrate,Micronized 134 Mg Capsule) 134 mg PO DAILY [facility] [place] Last Admin: 08/24/21 11:05 Dose: Not Given Documented by: Hydralazine HCl (Hydralazine Hcl 50 Mg Tablet) 50 mg PO TID [facility]; Protocol Last Admin: 08/24/21 11:03 Dose: 50 mg Documented by: Hydromorphone HCl (Hydromorphone Hcl 0.5 Mg/0.5 Ml Syringe) 0.25 mg IVPUSH Q4H PRN; Protocol PRN Reason: Breakthrough Pain Last Admin: 08/24/21 06:00 Dose: 0.25 mg Documented by: Lactated Ringer's (Lr) 1,000 mls @ 100 mls/hr IVCONT .Q10H [facility] Lisinopril (Lisinopril 10 Mg Tablet) 30 mg PO DAILY [facility] [place]; Protocol Last Admin: 08/24/21 11:03 Dose: 30 mg Documented by: Melatonin (Melatonin 3 Mg Tablet) 6 mg PO BEDTIME PRN PRN Reason: Insomnia Melatonin (Melatonin 3 Mg Tablet) 3 mg PO BEDTIME [facility] [place] Last Admin: 08/23/21 21:05 Dose: 3 mg Documented by: Oxycodone HCl (Oxycodone Hcl Immed Release 5 Mg Tablet) 5 mg PO Q6H [facility] Last Admin: 08/24/21 11:04 Dose: 5 mg Documented by: Pharmacy Consult (Consult Rx Perform Med Rec) 1 each MISCELLANE ONCE PRN PRN Reason: Consult order Ropinirole HCl (Ropinirole Hcl 0.25 Mg Tablet) 0.25 mg PO BID [facility] Last Admin: 08/24/21 11:04 Dose: Not Given Documented by: Senna (Sennosides 8.6 Mg Tablet) 17.2 mg PO BEDTIME PRN PRN Reason: Constipation Senna (Sennosides 8.6 Mg Tablet) 8.6 mg PO BEDTIME [facility] [place] Last Admin: 08/23/21 21:05 Dose: 8.6 mg Documented by: Sodium Chloride (0.9 % Sodium Chloride Flush 3 Ml Syringe) 3 ml IVFLUSH QSHIFT [facility] Last Admin: 08/24/21 11:05 Dose: 3 ml Documented by: Zolpidem Tartrate (Zolpidem Tartrate 5 Mg Tablet) 5 mg PO BEDTIME [facility] Last Admin: 08/23/21 21:05 Dose: 5 mg Documented by: Home Medications Medication Instructions Recorded Confirmed Last Taken Type apixaban 5 mg tablet (Eliquis) 5 mg PO BID 08/21/21 08/21/21 Unknown History clonazepam 0.5 mg tablet 0.5 mg PO BEDTIME 08/21/21 08/22/21 Unknown History diltiazem HCl 180 mg 180 mg PO DAILY 08/21/21 08/22/21 Unknown History capsule,extended release 24 hr, controlled docusate sodium 100 mg capsule 100 mg PO BID 08/21/21 08/22/21 Unknown History duloxetine 20 mg capsule,delayed 20 mg PO BID 08/21/21 08/22/21 Unknown History release famotidine 20 mg tablet 20 mg PO BID 08/21/21 08/22/21 Unknown History fenofibrate nanocrystallized 145 145 mg PO DAILY 08/21/21 08/22/21 Unknown History mg tablet furosemide 20 mg tablet 40 mg PO DAILY 08/21/21 08/22/21 Unknown History hydralazine 50 mg tablet 50 mg PO TID 08/21/21 08/22/21 Unknown History melatonin 3 mg tablet 3 mg PO BEDTIME 08/21/21 08/22/21 Unknown History oxycodone 5 mg tablet 5 mg PO Q6H 08/21/21 08/22/21 Unknown History ropinirole 0.25 mg tablet 0.25 mg PO BID 08/21/21 08/22/21 Unknown History sennosides 8.6 mg tablet (senna) 8.6 mg PO BEDTIME 08/21/21 08/22/21 Unknown History simvastatin 20 mg tablet 20 mg PO BEDTIME 08/21/21 08/22/21 Unknown History zolpidem 10 mg tablet 10 mg PO BEDTIME 08/21/21 08/22/21 Unknown History arformoterol 15 mcg/2 mL solution 2 ml INHALATION BID 08/22/21 08/22/21 Unknown History for nebulization (Ju[facility]) lisinopril 30 mg tablet 30 mg PO DAILY 08/22/21 08/22/21 Unknown History Exam Exam Date and Time: August 24, 2021 1506 Height,Weight and Vital Signs: Height 5 ft 4 in Weight 45.359 kg Last Vital Signs Temp 98.7 F 08/24/21 14:28 Pulse 70 08/24/21 14:28 Resp 16 08/24/21 14:28 BP 123/63 08/24/21 14:28 Pulse Ox 99 08/24/21 14:28 Pertinent Lab Results Pertinent Lab Results: Laboratory Tests 08/21/21 08/21/21 08/21/21 16:22 16:22 19:44 WBC 6.9 11.9 H RBC 2.89 L 2.94 L Hgb 7.8 L 8.0 L Hct 23.9 L 24.2 L MCV 82.7 82.3 MCH 27.0 27.2 MCHC 32.6 33.1 RDW 14.2 14.3 Plt Count 275 284 MPV 9.7 9.8 Immature Gran % (Auto) 0.4 0.7 H Neut % (Auto) 75.8 H 84.1 H Lymph % (Auto) 13.9 L 7.7 L [place] % (Auto) 8.6 6.8 Eos % (Auto) 0.9 0.4 Baso % (Auto) 0.4 0.3 Lymph # (Auto) 1.0 L 0.9 L [place] # (Auto) 0.6 0.8 Eos # (Auto) 0.1 0.1 Baso # (Auto) 0.0 0.0 Abs Immat Gran (auto) 0.03 0.08 H Absolute Neuts (auto) 5.2 10.0 H Absolute Nucleated RBC 0.000 0.000 Nucleated RBC % (auto) 0.0 0.0 PT INR APTT Sodium 140 Potassium 3.5 Chloride 100 Carbon Dioxide 31 H Anion Gap 13 BUN 13 Creatinine 0.90 Estim Creat Clear Calc 33.8 Estimated GFR 60 Random Glucose 102 Fasting Glucose Calcium 9.3 COVID-19 ([facility]) COVID-19 Clin Com Blood Type Antibody Screen Crossmatch 08/21/21 08/21/21 08/22/21 21:13 21:14 05:54 WBC 9.6 RBC 3.04 L Hgb 8.1 L Hct 25.1 L MCV 82.6 MCH 26.6 L MCHC 32.3 RDW 14.2 Plt Count 279 MPV 10.3 Immature Gran % (Auto) 0.4 Neut % (Auto) 81.2 H Lymph % (Auto) 8.9 L [place] % (Auto) 8.9 Eos % (Auto) 0.1 Baso % (Auto) 0.5 Lymph # (Auto) 0.9 L [place] # (Auto) 0.9 Eos # (Auto) 0.0 Baso # (Auto) 0.1 Abs Immat Gran (auto) 0.04 H Absolute Neuts (auto) 7.8 Absolute Nucleated RBC 0.000 Nucleated RBC % (auto) 0.0 PT INR APTT Sodium Potassium Chloride Carbon Dioxide Anion Gap BUN Creatinine Estim Creat Clear Calc Estimated GFR Random Glucose Fasting Glucose Calcium COVID-19 ([facility]) Negative COVID-19 Clin Com See Note Blood Type B Positive Antibody Screen NEGATIVE Crossmatch See Detail 08/22/21 08/23/21 08/23/21 05:54 06:31 06:31 WBC 10.5 RBC 3.61 L Hgb 9.6 L Hct 29.4 L MCV 81.4 MCH 26.6 L MCHC 32.7 RDW 14.5 Plt Count 249 MPV 10.0 Immature Gran % (Auto) Neut % (Auto) Lymph % (Auto) [place] % (Auto) Eos % (Auto) Baso % (Auto) Lymph # (Auto) [place] # (Auto) Eos # (Auto) Baso # (Auto) Abs Immat Gran (auto) Absolute Neuts (auto) Absolute Nucleated RBC 0.000 Nucleated RBC % (auto) 0.0 PT INR APTT Sodium 142 140 Potassium 3.7 4.4 Chloride 102 102 Carbon Dioxide 26 29 Anion Gap 18 13 BUN 12 15 Creatinine 0.82 0.77 Estim Creat Clear Calc 37.1 39.6 Estimated GFR > 60 > 60 Random Glucose 96 Fasting Glucose 128 H Calcium 9.5 9.4 COVID-19 ([facility]) COVID-19 [facility] Blood Type Antibody Screen Crossmatch 08/24/21 08/24/21 08/24/21 06:38 06:38 06:38 WBC 9.1 RBC 3.41 L Hgb 9.1 L Hct 28.0 L MCV 82.1 MCH 26.7 L MCHC 32.5 RDW 14.6 Plt Count 227 MPV 9.7 Immature Gran % (Auto) Neut % (Auto) Lymph % (Auto) [place] % (Auto) Eos % (Auto) Baso % (Auto) Lymph # (Auto) [place] # (Auto) Eos # (Auto) Baso # (Auto) Abs Immat Gran (auto) Absolute Neuts (auto) Absolute Nucleated RBC 0.000 Nucleated RBC % (auto) 0.0 PT 12.2 INR 1.1 APTT 32.1 Sodium 138 Potassium 4.1 Chloride 101 Carbon Dioxide 31 H Anion Gap 10 L BUN 18 H Creatinine 0.81 Estim Creat Clear Calc 37.7 Estimated GFR > 60 Random Glucose Fasting Glucose 116 H Calcium 9.1 COVID-19 ([facility]) COVID-19 [facility] Blood Type Antibody Screen Crossmatch Narrative Narrative: Seen by labor contract analyst. Recommends keeping Hct above 30 to minimise stress on heart. Will transfuse 1 unit of PRBC slowly yesenia-operatively Airway Mallampati Class: II TM Dist: >3cm Neck ROM: Limited Loose/Missing/Broken Teeth: Yes (Dentures out) Heart: ?RRR Lungs: CTAB Assessment and Plan Assessment Anesthesia Assessment: Anesthesia Plan Discussed and Chart Reviewed Final Anesthetic Review Family History of Problems with Anesthesia: No History of Problems with Anesthesia: No NPO: Yes ASA Class: IV and Emergency Final Preanesthetic Review: No Changes in Pt Med Stat, Meds/Allgs Chart Reviewed, Consent Obtained/Reviewed and Anes Risks/Benef Reviewed Patient Risk: High Procedure Risk: Intermediate Assessment/Block/Sedation in SS: Assess/Block/Sedation-SS Anesthetic Plan Anesthetic Plan: GA Disposition: Standard PACU and Inp. Admit - IMC
[2021-08-24] MEDS: Albuterol Sulfate (0.083%) 2.5 MG/3 ML VIAL.NEB INHALE (15:10)
--- NOTE | 2021-08-24 17:55 | MHC.SHP ---
Pre-Procedural Eval Section A Date of Service: 08/24/21 The patient is an INPATIENT: Yes Changes since office visit: Yes Patient answered all questions; No Cold of Flu in the past 2 weeks, No New Medical Problems and No Changes in Medication The History & Physical has been completed within 30 days and I have reviewed it.: Yes Section B Chief Complaint: fall Allergies: Allergies Allergy/AdvReac Type Severity Reaction Status Date / Time amoxicillin [Amoxicillin] Allergy Severe NAUSEA/VOMI Unverified 07/24/20 15:28 TING aspirin [Aspirin] Allergy Severe GASTRITIS Unverified 07/24/20 15:28 ibuprofen [Ibuprofen] Allergy Severe GASTRITIS Unverified 07/24/20 15:28 Erythromycin Allergy Unknown Unverified 06/13/20 00:00 Motrin Allergy Unknown Unverified 06/13/20 00:00 erythromycin base AdvReac Severe HEADACHES Unverified 07/24/20 15:28 [Erythromycin Base] Plan I have reviewed the history and physical and performed a pertinent physical examination on my patient. No changes have occurred unless specified.
--- NOTE | 2021-08-24 17:56 | P.BOP_ITS ---
Brief Operative Note Date of Service: 08/24/21 Pre-op diagnosis: right hip IT fx Post-op diagnosis: same Procedure: right hip IMN Implants: sheila short gamma nail with 90 mm hip screw Surgeon: Genaro Blakely MD Anesthesia: GETA and local Was an Instructional Design Specialist used for this Procedure?: No Estimated blood loss (mL): 100 IV fluids (mL): 500 Pathology: none sent Condition: stable Disposition: PACU
[2021-08-24] MEDS: Zolpidem Tartrate 5 MG TABLET PO (21:42)
[2021-08-24] MEDS: Atorvastatin Calcium 10 MG TABLET PO (21:42)
[2021-08-24] MEDS: clonazePAM 0.5 MG TABLET PO (21:42)
[2021-08-24] MEDS: Sennosides 8.6 MG TABLET PO (21:42)
[2021-08-24] MEDS: Melatonin 3 MG TABLET PO (21:42)
[2021-08-24] MEDS: rOPINIRole HCL 0.25 MG TABLET PO (21:42)
[2021-08-24] MEDS: Lactated Ringers 1,000 ML 100 ML IVCONT (22:00)
[2021-08-25] VITALS (8 sets, daily range): BP systolic 131–147; BP diastolic 59–79; PULSE 69–80; RESP 16–20; TEMP 35.5–37.6; O2SAT 84–97
[2021-08-25] MEDS: 0.9 % Sodium Chloride Flush 3 ML SYRINGE IVFLUSH ×4 (00:48→20:51)
[2021-08-25] MEDS: oxyCODONE HCl Immed Release 5 MG TABLET PO ×5 (00:48→20:49)
[2021-08-25] MEDS: HYDROmorphone HCl 0.5 MG/0.5 ML SYRINGE 0.25 MG IVPUSH ×3 (01:27→09:53)
[2021-08-25 07:12] LABS: Hematocrit 24.4 % (37-47); Mean Corpuscular HGB Conc 32.8 g/dl (31.0-35.0); Mean Corpuscular Hemoglobin 27.3 pg (27.0-33.0); Mean Corpuscular Volume 83.3 fL (80-98); Mean Platelet Volume 10.4 fL (9.4-12.3); Platelet Count 200 X10*3/uL (160-400); Red Blood Count 2.93 X10*6/uL (4.20-5.50); Red Cell Distribution Width 14.4 % (11.0-16.0); White Blood Count 11.1 X10*3/uL (4.8-10.8)
[2021-08-25 07:31] LABS: Anion Gap 14 (12-20); Blood Urea Nitrogen 18 mg/dL (9-16); Calcium 8.7 mg/dL (8.4-10.2); Carbon Dioxide 27 mmol/L (22-29); Chloride 99 mmol/L (96-108); Creatinine Clr Calc Pharmacy 40.1; Estimated Glomerular Filt Rate > 60; Glucose Fasting 125 mg/dL (60-99); Potassium 4.9 mmol/L (3.3-5.1); Sodium 135 mmol/L (135-145)
--- NOTE | 2021-08-25 08:53 | PM.PNORT ---
Subjective Subjective Date of Service: 08/25/21 Interval history: Pod 1 status post right hip IM nail. Patient is resting comfortably in the chair. No overnight events. Pain is well managed. No additional complaints. Physical Exam Vital Signs: Vital Signs: Last Vital Signs Temp 97 F 08/25/21 07:03 Pulse 75 08/25/21 08:32 Resp 20 08/25/21 07:03 BP 131/59 L 08/25/21 08:32 Pulse Ox 97 08/25/21 08:32 Body Mass Index 17.2 Const: General: cooperative, healthy appearing and no acute distress Resp: Effort & Inspection: normal respiratory effort and able to speak in complete sentences Cardio: Rate: regular rate Peripheral pulses: Peripheral pulses 2+ throughout GI: Palpation (GI): Soft to palpation Skin: Lesions: no lesions Rashes: no rashes Extrem: Other: Right hip bandages are clean dry and intact. Patient is able to plantar flex and dorsiflex. NVI. Procedures Date of Service Date of Service: 08/25/21 Progress Note: A&P Assessment and plan (1) Intertrochanteric fracture of right femur: Status: Acute Assessment and Plan: Continue pain mgmnt Begin Lovenox bridge for dvt ppx; patient may resume Eliquis 48 hours after surgery begin PT for right hip IM nail weight-bearing as tolerated Dispo planning-Pending PT eval, pain mgmnt Fall Risk Details Current Medications: Current Medications Acetaminophen (Acetaminophen 325 Mg Tablet) 650 mg PO Q6H PRN PRN Reason: Pain, Mild (Pain Scale 1-3) Last Admin: 08/23/21 21:02 Dose: 650 mg Documented by: Albuterol/Ipratropium (Albuterol/Iprat 2.5/0.5mg 3 Ml Ampul.Neb) 3 ml INHALE RQ4H PRN PRN Reason: Shortness of Breath/Wheezing Atorvastatin Calcium (Atorvastatin Calcium 10 Mg Tablet) 10 mg PO BEDTIME [facility] Last Admin: 08/24/21 21:42 Dose: 10 mg Documented by: Clonazepam (Clonazepam 0.5 Mg Tablet) 0.5 mg PO BEDTIME [facility] Last Admin: 08/24/21 21:42 Dose: 0.5 mg Documented by: Diltiazem HCl (Diltiazem Hcl Cd 180 Mg Cap.Er.24h) 180 mg PO DAILY [facility]; Protocol Last Admin: 08/24/21 11:03 Dose: 180 mg Documented by: Duloxetine HCl (Duloxetine Hcl 20 Mg Capsule.Dr) 20 mg PO BID [facility] Last Admin: 08/24/21 21:42 Dose: 20 mg Documented by: Enoxaparin Sodium (Enoxaparin Sodium 40 Mg/0.4 Ml Syringe) 40 mg SUBCUT Q24H [facility] Famotidine (Famotidine 20 Mg Tablet) 20 mg PO DAILY [facility] Last Admin: 08/24/21 11:04 Dose: Not Given Documented by: Fenofibrate (Fenofibrate,Micronized 134 Mg Capsule) 134 mg PO DAILY [facility] Last Admin: 08/24/21 11:05 Dose: Not Given Documented by: Fentanyl (Fentanyl Citrate/Pf 100 Mcg/2 Ml Vial) 50 mcg IVPUSH Q5M PRN; Protocol PRN Reason: Pain, Severe (Pain Scale 7-10) Hydralazine HCl (Hydralazine Hcl 50 Mg Tablet) 50 mg PO TID [facility]; Protocol Last Admin: 08/24/21 21:43 Dose: Not Given Documented by: Hydromorphone HCl (Hydromorphone Hcl 0.5 Mg/0.5 Ml Syringe) 0.25 mg IVPUSH Q4H PRN; Protocol PRN Reason: Breakthrough Pain Last Admin: 08/25/21 05:14 Dose: 0.25 mg Documented by: Hydromorphone HCl (Hydromorphone Hcl 0.5 Mg/0.5 Ml Syringe) 0.25 mg IVPUSH Q5M PRN; Protocol PRN Reason: Pain, Severe (Pain Scale 7-10) Last Admin: 08/24/21 19:10 Dose: 0.25 mg Documented by: Promethazine HCl 12.5 mg/ (Sodium Chloride) 50.5 mls @ 202 mls/hr IV ONCE PRN PRN Reason: Nausea and Vomiting Lisinopril (Lisinopril 10 Mg Tablet) 30 mg PO DAILY [facility]; Protocol Last Admin: 08/24/21 11:03 Dose: 30 mg Documented by: Melatonin (Melatonin 3 Mg Tablet) 6 mg PO BEDTIME PRN PRN Reason: Insomnia Melatonin (Melatonin 3 Mg Tablet) 3 mg PO BEDTIME [facility] Last Admin: 08/24/21 21:42 Dose: 3 mg Documented by: Ondansetron HCl (Ondansetron Hcl 4 Mg/2 Ml Vial) 4 mg IVPUSH ONCE PRN PRN Reason: Nausea and Vomiting Oxycodone HCl (Oxycodone Hcl Immed Release 5 Mg Tablet) 5 mg PO Q6H [facility] Last Admin: 08/25/21 05:08 Dose: 5 mg Documented by: Pharmacy Consult (Consult Rx Perform Med Rec) 1 each MISCELLANE ONCE PRN PRN Reason: Consult order Ropinirole HCl (Ropinirole Hcl 0.25 Mg Tablet) 0.25 mg PO BID [facility] Last Admin: 08/24/21 21:42 Dose: 0.25 mg Documented by: Senna (Sennosides 8.6 Mg Tablet) 17.2 mg PO BEDTIME PRN PRN Reason: Constipation Senna (Sennosides 8.6 Mg Tablet) 8.6 mg PO BEDTIME [facility] Last Admin: 08/24/21 21:42 Dose: 8.6 mg Documented by: Sodium Chloride (0.9 % Sodium Chloride Flush 3 Ml Syringe) 3 ml IVFLUSH QSHIFT [facility] Last Admin: 08/25/21 00:48 Dose: 3 ml Documented by: Zolpidem Tartrate (Zolpidem Tartrate 5 Mg Tablet) 5 mg PO BEDTIME [facility] Last Admin: 08/24/21 21:42 Dose: 5 mg Documented by: Time Spent With Patient Time: Total time spent is greater than 50% in coordination of care (as documented) at patient's floor/unit and/or counseling patient: Time with patient: less than 15 minutes Quality Stroke Does the patient have a stroke diagnosis?: No VTE Prior VTE?: No VTE Risk Level:: Medical - moderate - high VTE Device Contraindication: N/A - Device Ordered VTE Drug Contraindication: Treatment Not Tolerated
--- NOTE | 2021-08-25 09:30 | P.PNIM_ITS ---
Subjective Subjective Date of Service: 08/25/21 Interval History: cc: fall, hip pain interval history: pod 1 feeling better, able to walk well with walker/PT Cardiovascular Cardiovascular: Reports no additional cardiovascular complaints Respiratory Respiratory: Reports no additional respiratory complaints Physical Exam Vital Signs: Vital Signs: Last Vital Signs Temp 97 F 08/25/21 07:03 Pulse 75 08/25/21 08:32 Resp 20 08/25/21 07:03 BP 131/59 L 08/25/21 08:32 Pulse Ox 97 08/25/21 08:32 Body Mass Index 17.2 General: AO X 3, no acute distress, frail appearing Resp:? diminished, no accessory muscles used CVS: S1,S2,RRR GI: soft, non tender, non distended Neuro:? motor grossly intact, alert Psych: appropriate affect, appropriate insight? Objective Data Active Medications Acetaminophen (Acetaminophen 325 Mg Tablet) 650 mg PO Q6H PRN PRN Reason: Pain, Mild (Pain Scale 1-3) Last Admin: 08/23/21 21:02 Dose: 650 mg Documented by: JOHN Albuterol/Ipratropium (Albuterol/Iprat 2.5/0.5mg 3 Ml Ampul.Neb) 3 ml INHALE RQ4H PRN PRN Reason: Shortness of Breath/Wheezing Atorvastatin Calcium (Atorvastatin Calcium 10 Mg Tablet) 10 mg PO BEDTIME [facility] Last Admin: 08/24/21 21:42 Dose: 10 mg Documented by: ELSIE Clonazepam (Clonazepam 0.5 Mg Tablet) 0.5 mg PO BEDTIME [facility] Last Admin: 08/24/21 21:42 Dose: 0.5 mg Documented by: ELSIE Diltiazem HCl (Diltiazem Hcl Cd 180 Mg Cap.Er.24h) 180 mg PO DAILY [facility]; Protocol Last Admin: 08/24/21 11:03 Dose: 180 mg Documented by: STIVEN Duloxetine HCl (Duloxetine Hcl 20 Mg Capsule.Dr) 20 mg PO BID [facility] Last Admin: 08/24/21 21:42 Dose: 20 mg Documented by: ELSIE Enoxaparin Sodium (Enoxaparin Sodium 40 Mg/0.4 Ml Syringe) 40 mg SUBCUT Q24H [facility] Famotidine (Famotidine 20 Mg Tablet) 20 mg PO DAILY [facility] Last Admin: 08/24/21 11:04 Dose: Not Given Documented by: STIVEN Non-Admin Reason: npo. presurg Fenofibrate (Fenofibrate,Micronized 134 Mg Capsule) 134 mg PO DAILY [facility] Last Admin: 08/24/21 11:05 Dose: Not Given Documented by: STIVEN Non-Admin Reason: npo. presurg. Fentanyl (Fentanyl Citrate/Pf 100 Mcg/2 Ml Vial) 50 mcg IVPUSH Q5M PRN; Protocol PRN Reason: Pain, Severe (Pain Scale 7-10) Hydralazine HCl (Hydralazine Hcl 50 Mg Tablet) 50 mg PO TID [facility]; Protocol Last Admin: 08/24/21 21:41 Dose: 50 mg Documented by: ELSIE Hydromorphone HCl (Hydromorphone Hcl 0.5 Mg/0.5 Ml Syringe) 0.25 mg IVPUSH Q4H PRN; Protocol PRN Reason: Breakthrough Pain Last Admin: 08/25/21 05:14 Dose: 0.25 mg Documented by: EDUAROIC Hydromorphone HCl (Hydromorphone Hcl 0.5 Mg/0.5 Ml Syringe) 0.25 mg IVPUSH Q5M PRN; Protocol PRN Reason: Pain, Severe (Pain Scale 7-10) Last Admin: 08/24/21 19:10 Dose: 0.25 mg Documented by: MISSY Promethazine HCl 12.5 mg/ (Sodium Chloride) 50.5 mls @ 202 mls/hr IV ONCE PRN PRN Reason: Nausea and Vomiting Lisinopril (Lisinopril 10 Mg Tablet) 30 mg PO DAILY [facility]; Protocol Last Admin: 08/24/21 11:03 Dose: 30 mg Documented by: STIVEN Melatonin (Melatonin 3 Mg Tablet) 6 mg PO BEDTIME PRN PRN Reason: Insomnia Melatonin (Melatonin 3 Mg Tablet) 3 mg PO BEDTIME [facility] Last Admin: 08/24/21 21:42 Dose: 3 mg Documented by: ELSIE Ondansetron HCl (Ondansetron Hcl 4 Mg/2 Ml Vial) 4 mg IVPUSH ONCE PRN PRN Reason: Nausea and Vomiting Oxycodone HCl (Oxycodone Hcl Immed Release 5 Mg Tablet) 5 mg PO Q6H [facility] Last Admin: 08/25/21 05:08 Dose: 5 mg Documented by: ANGEL Pharmacy Consult (Consult Rx Perform Med Rec) 1 each MISCELLANE ONCE PRN PRN Reason: Consult order Ropinirole HCl (Ropinirole Hcl 0.25 Mg Tablet) 0.25 mg PO BID [facility] Last Admin: 08/24/21 21:42 Dose: 0.25 mg Documented by: ELSIE Senna (Sennosides 8.6 Mg Tablet) 17.2 mg PO BEDTIME PRN PRN Reason: Constipation Senna (Sennosides 8.6 Mg Tablet) 8.6 mg PO BEDTIME [facility] Last Admin: 08/24/21 21:42 Dose: 8.6 mg Documented by: ELSIE Sodium Chloride (0.9 % Sodium Chloride Flush 3 Ml Syringe) 3 ml IVFLUSH QSHIFT [facility] Last Admin: 08/25/21 00:48 Dose: 3 ml Documented by: DAHIANA Zolpidem Tartrate (Zolpidem Tartrate 5 Mg Tablet) 5 mg PO BEDTIME [facility] Last Admin: 08/24/21 21:42 Dose: 5 mg Documented by: ELSIE Labs CBC & Chem 7: 08/25/21 06:15 08/25/21 06:15 Labs: Laboratory Results - last 24 hr 08/21/21 08/25/21 08/25/21 21:13 06:15 06:15 MCV 83.3 MCH 27.3 MCHC 32.8 RDW 14.4 Plt Count 200 MPV 10.4 Absolute Nucleated RBC 0.000 Nucleated RBC % (auto) 0.0 Anion Gap 14 Estim Creat Clear Calc 40.1 Estimated GFR > 60 Fasting Glucose 125 H Calcium 8.7 Blood Type B Positive Antibody Screen NEGATIVE Crossmatch See Detail Assessment and Plan (1) Nocturnal hypoxemia: Status: Acute (2) COPD (chronic obstructive pulmonary disease): Status: Acute (3) Pulmonary hypertension: Status: Acute (4) Anemia: Status: Acute (5) Persistent atrial fibrillation: Status: Acute Assessment and Plan: 81F presented with fall, found to have right hip fracture right hip fracture POD 1, IMN 08/24/21 PT - recommending acute rehab anemia inflammatory, acute blood loss due to hematoma received 1 unit prbc preop. monitor permanent atrial fibrillation cardizem, restart eliquis at 2.5mg bid (weight, age) evening of 08/26/21 copd/severe pulm htn o2 at night inhalers prn AAA no leak on cta dvt prophylaxis - lovenox this evening then restarting eliquis 08/26/21 full code Quality Stroke Does the patient have a stroke diagnosis?: No VTE Prior VTE?: No VTE Risk Level:: Medical - moderate - high VTE Device Contraindication: N/A - Device Ordered VTE Drug Contraindication: Treatment Not Tolerated
--- NOTE | 2021-08-25 09:48 | HO.POSTANES ---
Post Anesthesia Evaluation Post Anesthesia Evaluation Vital Signs: Vital Signs Temp Pulse Resp BP Pulse Ox 08/25/21 08:32 75 131/59 L 97 08/25/21 07:03 97 F 75 20 131/59 L 97 08/25/21 03:31 97.7 F 69 18 147/79 H 94 08/24/21 23:31 97.4 F 67 18 119/52 L 95 08/24/21 22:39 70 Anesthesia: General Mental Status: Awake Pain Control: Satisfactory Nausea/Vomiting: None Hydration: Adequate Anesthesia-Related Issues: No Anes. Related Issues
[2021-08-25] MEDS: dilTIAZem HCL CD 180 MG CAP.ER.24H PO (09:51)
[2021-08-25] MEDS: lisinopriL 10 MG TABLET 30 MG PO (09:51)
[2021-08-25] MEDS: Famotidine 20 MG TABLET PO (09:51)
[2021-08-25] MEDS: hydrALAZINE HCl 50 MG TABLET PO ×3 (09:51→20:50)
[2021-08-25] MEDS: Fenofibrate,Micronized 134 MG CAPSULE PO (09:51)
[2021-08-25] MEDS: DULoxetine HCl 20 MG CAPSULE.DR PO ×2 (09:52→20:49)
[2021-08-25] MEDS: rOPINIRole HCL 0.25 MG TABLET PO ×2 (09:52→20:49)
--- NOTE | 2021-08-25 10:24 | P.OP_ITS ---
Operative Note Operative Note Date of Service: 08/25/21 Narrative: Pre-op diagnosis: right hip IT fx Post-op diagnosis: same Procedure: right hip IMN Implants: sheila short gamma nail with 90 mm hip screw Surgeon: Genaro Blakely MD Anesthesia: GETA and local Was an Regional Program Manager used for this Procedure?: No Estimated blood loss (mL): 100 IV fluids (mL): 500 Pathology: none sent Condition: stable Disposition: PACU Procedure in detail: Patient was brought to the operating room and prepped and draped in standard sterile fashion. Time-out was called to identify proper site procedure proper surgeon and IV antibiotics per weight were administered. She was positioned on the fracture table and a traction and slight internal rotation were performed and biplanar fluoroscopy confirmed initial fracture reduction. I then made a stab incision proximal to the greater trochanter in using a guidewire made a entry point just lateral to the tip of the greater trochanter and placed a guidewire into the femoral metadiaphysis. I then over-reamed with 15 mm reamer and then placed my ball-tip guidewire down distally in the femur in order to ream the proximal diaphysis. I then selected [id number] 125 deg IM nail and reamed up to a 13. I then placed the nail. I then turned my attention to the hip screw where I used a guidewire and a tip apex distance of less than 1.5 measured my hip screw. I then pre drilled and placed a hip screw using biplanar fluoroscopy. Once I was satisfied with the position of the hip screw. . I then placed my set screw proximally and removed all extraneous instrumentation. Final biplanar radiographs were taken. I was satisfied with the position of the hardware and the fracture reduction. I copiously irrigated and closed with absorbable sutures and eloisa and injected 30 mL of into the area of the incisions. Traction was let down patient was placed in sterile dressing awakened from anesthesia brought to recovery room stable condition there were no known complications.
--- NOTE | 2021-08-25 13:22 | MHC.CM.PN ---
physical therapy recommended acute rehab for pt ,received phone call from levi alvarado from [facility] who feels that pt will only approve str referrals were made to their facilities
[2021-08-25] MEDS: clonazePAM 0.5 MG TABLET PO (20:48)
[2021-08-25] MEDS: Melatonin 3 MG TABLET PO (20:50)
[2021-08-25] MEDS: Atorvastatin Calcium 10 MG TABLET PO (20:50)
[2021-08-25] MEDS: Zolpidem Tartrate 5 MG TABLET PO (20:50)
[2021-08-25] MEDS: Sennosides 8.6 MG TABLET PO (20:50)
[2021-08-26] VITALS (14 sets, daily range): BP systolic 128–170; BP diastolic 56–72; PULSE 66–74; RESP 12–18; TEMP 36.2–37; O2SAT 90–100
[2021-08-26] MEDS: Melatonin 3 MG TABLET 6 MG PO (00:12)
[2021-08-26] MEDS: Acetaminophen 325 MG TABLET 650 MG PO (00:13)
[2021-08-26] MEDS: oxyCODONE HCl Immed Release 5 MG TABLET PO ×4 (03:50→23:30)
[2021-08-26 06:32] LABS: Hematocrit 21.7 % (37-47); Hemoglobin 7.1 g/dl (12.0-16.0); Mean Corpuscular HGB Conc 32.7 g/dl (31.0-35.0); Mean Corpuscular Hemoglobin 27.2 pg (27.0-33.0); Mean Corpuscular Volume 83.1 fL (80-98); Mean Platelet Volume 10.4 fL (9.4-12.3); Platelet Count 171 X10*3/uL (160-400); Red Blood Count 2.61 X10*6/uL (4.20-5.50); Red Cell Distribution Width 14.4 % (11.0-16.0); White Blood Count 9.6 X10*3/uL (4.8-10.8)
[2021-08-26 06:38] LABS: Anion Gap 11 (12-20); Blood Urea Nitrogen 20 mg/dL (9-16); Calcium 8.8 mg/dL (8.4-10.2); Carbon Dioxide 29 mmol/L (22-29); Chloride 96 mmol/L (96-108); Estimated Glomerular Filt Rate > 60; Glucose Fasting 139 mg/dL (60-99); Potassium 4.4 mmol/L (3.3-5.1); Sodium 132 mmol/L (135-145)
[2021-08-26] MEDS: lisinopriL 10 MG TABLET 30 MG PO (09:43)
[2021-08-26] MEDS: dilTIAZem HCL CD 180 MG CAP.ER.24H PO (09:44)
[2021-08-26] MEDS: rOPINIRole HCL 0.25 MG TABLET PO ×2 (09:44→22:01)
[2021-08-26] MEDS: Famotidine 20 MG TABLET PO (09:44)
[2021-08-26] MEDS: DULoxetine HCl 20 MG CAPSULE.DR PO ×2 (09:44→22:01)
[2021-08-26] MEDS: hydrALAZINE HCl 50 MG TABLET PO ×3 (09:44→22:01)
[2021-08-26] MEDS: Fenofibrate,Micronized 134 MG CAPSULE PO (09:44)
[2021-08-26] MEDS: 0.9 % Sodium Chloride Flush 3 ML SYRINGE IVFLUSH ×3 (09:45→22:06)
--- NOTE | 2021-08-26 11:22 | PC.NURSE ---
Skin assessment completed. Patient has a stage 1 on medial coccyx. Foam dressing applied. Also, a surgical incision to right hip from ORIF. C/D/I. Scattered bruising on BUE. No other skin issues noted at this time.
[2021-08-26] MEDS: Furosemide 20 MG/2 ML VIAL IVPUSH (11:58)
--- NOTE | 2021-08-26 12:08 | PC.NURSE ---
Patient ordered 2 units of RBCs; lasix given inbetween per hospitalist. Patient slightly more rhoncorous following 1st unit; will reassess following 2nd unit. BP also slightly elevated post first unit.
--- NOTE | 2021-08-26 12:16 | MHC.CLN ---
F/U PT IS MODERATELY MALNOURISHED PT WITH MILDLY DEPLETED SUBCUTANEOUS FAT AND MUSCLE MASS, BMI 17.2 AND 9% NONSIGNIFICANT WT LOSS X 1 YEAR. DIET RX: REGULAR-APPROPRIATE VARIABLE PO INTAKE PT RECEPTIVE TO DRINKING ENSURE (PREFERS CLAUDETTE) BID TO INCREASE KCALS SUPP TO PROVIDE 700KCALS, 40G PROTEIN STAGE 1 COCCYX-ENCOURAGE TO DRINK SUPPLEMENTS FOR INCREASED PO PROTEIN MONITOR PO INTAKE CLOSELY
--- NOTE | 2021-08-26 14:24 | MHC.CM.PN ---
per rounds pt will be getting to units of blood anticapate dc to str
--- NOTE | 2021-08-26 14:42 | HO.PM.IMPN ---
Subjective Subjective Date of Service: 08/26/21 Interval History: No acute issues overnight. Anemia worsened: patient remains asymptomatic Review of Systems Denies chest pain Denies shortness breath Denies nausea vomiting diarrhea Physical Exam Vital Signs: Vital Signs: Last Vital Signs Temp 97.5 F 08/26/21 12:21 Pulse 70 08/26/21 12:21 Resp 14 08/26/21 12:21 BP 153/72 H 08/26/21 12:21 Pulse Ox 96 08/26/21 07:58 Body Mass Index 17.2 Const: Other: Comfortable no acute distress HENMT: Other: Mucous membranes moist; posterior pharynx clear Resp: Other: Clear to auscultation bilaterally no rales rhonchi wheezes Cardio: Other: Irregularly irregular no S4 positive S1-S2 no S3 murmurs rubs gallops GI: Other: Soft nontender nondistended with normoactive bowel sounds. No peritoneal signs Neuro: Other: Cranial nerves 2-12 grossly intact as tested. Motor is 5/5 all extremities. Sensation is intact Extrem: Other: No edema Objective Data Active Medications Acetaminophen (Acetaminophen 325 Mg Tablet) 650 mg PO Q6H PRN PRN Reason: Pain, Mild (Pain Scale 1-3) Last Admin: 08/26/21 00:13 Dose: 650 mg Documented by: MICHELLE Albuterol/Ipratropium (Albuterol/Iprat 2.5/0.5mg 3 Ml Ampul.Neb) 3 ml INHALE RQ4H PRN PRN Reason: Shortness of Breath/Wheezing Apixaban (Apixaban 2.5 Mg Tablet) 2.5 mg PO BID COUNTS INCLUDE 234 BEDS AT THE [facility] Atorvastatin Calcium (Atorvastatin Calcium 10 Mg Tablet) 10 mg PO BEDTIME COUNTS INCLUDE 234 BEDS AT THE [facility] Last Admin: 08/25/21 20:50 Dose: 10 mg Documented by: MICHELLE Clonazepam (Clonazepam 0.5 Mg Tablet) 0.5 mg PO BEDTIME COUNTS INCLUDE 234 BEDS AT THE [facility] Last Admin: 08/25/21 20:48 Dose: 0.5 mg Documented by: MICHELLE Diltiazem HCl (Diltiazem Hcl Cd 180 Mg Cap.Er.24h) 180 mg PO DAILY COUNTS INCLUDE 234 BEDS AT THE [facility]; Protocol Last Admin: 08/26/21 09:44 Dose: 180 mg Documented by: ZEUS Duloxetine HCl (Duloxetine Hcl 20 Mg Capsule.Dr) 20 mg PO BID COUNTS INCLUDE 234 BEDS AT THE [facility] Last Admin: 08/26/21 09:44 Dose: 20 mg Documented by: ZEUS Famotidine (Famotidine 20 Mg Tablet) 20 mg PO DAILY COUNTS INCLUDE 234 BEDS AT THE [facility] Last Admin: 08/26/21 09:44 Dose: 20 mg Documented by: ZEUS Fenofibrate (Fenofibrate,Micronized 134 Mg Capsule) 134 mg PO DAILY COUNTS INCLUDE 234 BEDS AT THE [facility] Last Admin: 08/26/21 09:44 Dose: 134 mg Documented by: ZEUS Fentanyl (Fentanyl Citrate/Pf 100 Mcg/2 Ml Vial) 50 mcg IVPUSH Q5M PRN; Protocol PRN Reason: Pain, Severe (Pain Scale 7-10) Hydralazine HCl (Hydralazine Hcl 50 Mg Tablet) 50 mg PO TID COUNTS INCLUDE 234 BEDS AT THE [facility]; Protocol Last Admin: 08/26/21 09:44 Dose: 50 mg Documented by: ZEUS Hydromorphone HCl (Hydromorphone Hcl 0.5 Mg/0.5 Ml Syringe) 0.25 mg IVPUSH Q4H PRN; Protocol PRN Reason: Breakthrough Pain Last Admin: 08/25/21 09:53 Dose: 0.25 mg Documented by: CATIE Hydromorphone HCl (Hydromorphone Hcl 0.5 Mg/0.5 Ml Syringe) 0.25 mg IVPUSH Q5M PRN; Protocol PRN Reason: Pain, Severe (Pain Scale 7-10) Last Admin: 08/24/21 19:10 Dose: 0.25 mg Documented by: MISSY Promethazine HCl 12.5 mg/ (Sodium Chloride) 50.5 mls @ 202 mls/hr IV ONCE PRN PRN Reason: Nausea and Vomiting Lisinopril (Lisinopril 10 Mg Tablet) 30 mg PO DAILY COUNTS INCLUDE 234 BEDS AT THE [facility]; Protocol Last Admin: 08/26/21 09:43 Dose: 30 mg Documented by: ZEUS Melatonin (Melatonin 3 Mg Tablet) 6 mg PO BEDTIME PRN PRN Reason: Insomnia Last Admin: 08/26/21 00:12 Dose: 6 mg Documented by: MICHELLE Melatonin (Melatonin 3 Mg Tablet) 3 mg PO BEDTIME COUNTS INCLUDE 234 BEDS AT THE [facility] Last Admin: 08/25/21 20:50 Dose: 3 mg Documented by: MICHELLE Ondansetron HCl (Ondansetron Hcl 4 Mg/2 Ml Vial) 4 mg IVPUSH ONCE PRN PRN Reason: Nausea and Vomiting Oxycodone HCl (Oxycodone Hcl Immed Release 5 Mg Tablet) 5 mg PO Q6H COUNTS INCLUDE 234 BEDS AT THE [facility] Last Admin: 08/26/21 09:43 Dose: 5 mg Documented by: ZEUS Pharmacy Consult (Consult Rx Perform Med Rec) 1 each MISCELLANE ONCE PRN PRN Reason: Consult order Ropinirole HCl (Ropinirole Hcl 0.25 Mg Tablet) 0.25 mg PO BID COUNTS INCLUDE 234 BEDS AT THE [facility] Last Admin: 08/26/21 09:44 Dose: 0.25 mg Documented by: ZEUS Senna (Sennosides 8.6 Mg Tablet) 17.2 mg PO BEDTIME PRN PRN Reason: Constipation Senna (Sennosides 8.6 Mg Tablet) 8.6 mg PO BEDTIME COUNTS INCLUDE 234 BEDS AT THE [facility] Last Admin: 08/25/21 20:50 Dose: 8.6 mg Documented by: MICHELLE Sodium Chloride (0.9 % Sodium Chloride Flush 3 Ml Syringe) 3 ml IVFLUSH QSHIFT COUNTS INCLUDE 234 BEDS AT THE [facility] Last Admin: 08/26/21 09:45 Dose: 3 ml Documented by: ZEUS Zolpidem Tartrate (Zolpidem Tartrate 5 Mg Tablet) 5 mg PO BEDTIME COUNTS INCLUDE 234 BEDS AT THE [facility] Last Admin: 08/25/21 20:50 Dose: 5 mg Documented by: MICHELLE Labs CBC & Chem 7: 08/26/21 06:15 08/26/21 06:15 Labs: Laboratory Results - last 24 hr 08/21/21 08/26/21 08/26/21 21:13 06:15 06:15 MCV 83.1 MCH 27.2 MCHC 32.7 RDW 14.4 Plt Count 171 MPV 10.4 Absolute Nucleated RBC 0.000 Nucleated RBC % (auto) 0.0 Anion Gap 11 L Estim Creat Clear Calc 35.0 Estimated GFR > 60 Fasting Glucose 139 H Calcium 8.8 Blood Type B Positive Antibody Screen NEGATIVE Crossmatch See Detail 08/26/21 09:03 MCV MCH MCHC RDW Plt Count MPV Absolute Nucleated RBC Nucleated RBC % (auto) Anion Gap Estim Creat Clear Calc Estimated GFR Fasting Glucose Calcium Blood Type B Positive Antibody Screen NEGATIVE Crossmatch See Detail Assessment and Plan (1) Intertrochanteric fracture of right femur: Status: Acute (2) Pulmonary hypertension: Status: Acute (3) Acute blood loss anemia: Status: Acute Assessment and Plan: 81yoF with persistent atrial fibrillation, pacemaker placement for complete heart block, severe pulmonary hypertension, hypertension.? She lives at home alone and yesterday had an accidental fall and came to the hospital with right hip pain.? She was noted to have right hip fracture and is being evaluated by orthopedic team for open repair and internal fixation.?? 1Intertrochanteric Right hip Fx s/p ORIF Doing well; further plans as per Ortho 2.Anemia Limited response to 1 unit of packed red cells preop; will transfuse 2 units with Lasix in between Check counts in a.m. if counts responsive and Ortho in agreement she may be discharged to SNF 3. Chronic Atrial Fibrillation Rate well control. Will continue Cardizem. As per Ortho, will start Eliquis to 2.5 mg b.i.d. this evening 4. COPD/pulmonary hypertension Continue Lasix hydralazine lisinopril as ordered DVT prophylaxis - lovenox this evening then restarting eliquis 08/26/21 Full code Quality Stroke Does the patient have a stroke diagnosis?: No VTE Prior VTE?: No VTE Risk Level:: Medical - moderate - high VTE Device Contraindication: N/A - Device Ordered VTE Drug Contraindication: Treatment Not Tolerated
[2021-08-26] MEDS: Melatonin 3 MG TABLET PO (22:00)
[2021-08-26] MEDS: Apixaban 2.5 MG TABLET PO (22:00)
[2021-08-26] MEDS: Atorvastatin Calcium 10 MG TABLET PO (22:00)
[2021-08-26] MEDS: clonazePAM 0.5 MG TABLET PO (22:01)
[2021-08-26] MEDS: Sennosides 8.6 MG TABLET PO (22:01)
[2021-08-26] MEDS: Zolpidem Tartrate 5 MG TABLET PO (22:01)
[2021-08-27] VITALS (10 sets, daily range): BP systolic 123–146; BP diastolic 58–68; PULSE 75–89; RESP 18–20; TEMP 36.4–37.1; O2SAT 91–98
[2021-08-27] MEDS: oxyCODONE HCl Immed Release 5 MG TABLET PO ×3 (04:49→16:41)
[2021-08-27 06:41] LABS: MANUAL DIFF FLAG NO
[2021-08-27 06:46] LABS: Basophils Percent Auto 0.2 % (0-2); Eosinophils Absolute Auto 0.1 X10*3/uL (0.0-0.4); Eosinophils Percent Auto 0.7 % (0-4); Hematocrit 34.1 % (37-47); Hemoglobin 11.3 g/dl (12.0-16.0); Imm Gran Abs Auto 0.07 X10*3/uL (0.00-0.03); Imm Gran Pct Auto 0.7 % (0.0-0.4); Lymphocytes Absolute Auto 0.6 X10*3/uL (1.2-4.9); Mean Corpuscular HGB Conc 33.1 g/dl (31.0-35.0); Mean Corpuscular Hemoglobin 28.5 pg (27.0-33.0); Mean Corpuscular Volume 86.1 fL (80-98); Mean Platelet Volume 10.4 fL (9.4-12.3); Monocytes Absolute Auto 1.2 X10*3/uL (0.1-1.2); Monocytes Percent Auto 11.7 % (2-11); Neutrophils Absolute Auto 8.2 X10*3/uL (2.0-8.3); Neutrophils Percent Auto 80.7 % (45-73); Platelet Count 170 X10*3/uL (160-400); Red Blood Count 3.96 X10*6/uL (4.20-5.50); Red Cell Distribution Width 15.6 % (11.0-16.0); White Blood Count 10.2 X10*3/uL (4.8-10.8)
[2021-08-27 07:03] LABS: Alanine Aminotransferase 13 U/L (0-31); Albumin Level 3.3 g/dL (3.5-5.0); Alkaline Phosphatase 30 U/L (39-117); Anion Gap 11 (12-20); Aspartate Amino Transferase 29 U/L (5-31); Bilirubin Total 1.2 mg/dL (0.0-1.0); Blood Urea Nitrogen 18 mg/dL (9-16); Carbon Dioxide 31 mmol/L (22-29); Chloride 96 mmol/L (96-108); Creatinine Clr Calc Pharmacy 42.9; Estimated Glomerular Filt Rate > 60; Glucose Fasting 125 mg/dL (60-99); Potassium 4.2 mmol/L (3.3-5.1); Sodium 134 mmol/L (135-145); Total Protein 5.4 g/dL (6.5-8.0)
--- NOTE | 2021-08-27 08:40 | P.PNOP_ITS ---
Subjective Subjective Date of Service: 08/27/21 Interval history: POD2 s/p rt hip IMN. Patient resting comfortably. No overnight events. Pain is well manged. No additional complaints. Physical Exam Vital Signs: Vital Signs: Last Vital Signs Temp 98.2 F 08/27/21 08:00 Pulse 76 08/27/21 08:00 Resp 20 08/27/21 08:00 BP 146/68 H 08/27/21 08:00 Pulse Ox 96 08/27/21 08:00 Body Mass Index 17.2 Const: General: cooperative, healthy appearing and no acute distress Resp: Effort & Inspection: normal respiratory effort and able to speak in complete sentences Cardio: Rate: regular rate Peripheral pulses: Peripheral pulses 2+ throughout GI: Palpation (GI): Soft to palpation Skin: Lesions: no lesions Rashes: no rashes Extrem: Other: rt hip bandages are clean dry and intact.? Patient is able to plantar flex and dorsiflex.? NVI. Procedures Date of Service Date of Service: 08/27/21 Progress Note: A&P Assessment and plan (1) Intertrochanteric fracture of right femur: Status: Acute Assessment and Plan: Continue pain mgmnt Continue Eliquis for dvt ppx Continue PT for rt hip IMN Dispo planning-Pending PT eval, pain mgmnt Fall Risk Details Current Medications: Current Medications Acetaminophen (Acetaminophen 325 Mg Tablet) 650 mg PO Q6H PRN PRN Reason: Pain, Mild (Pain Scale 1-3) Last Admin: 08/26/21 00:13 Dose: 650 mg Documented by: Albuterol/Ipratropium (Albuterol/Iprat 2.5/0.5mg 3 Ml Ampul.Neb) 3 ml INHALE RQ4H PRN PRN Reason: Shortness of Breath/Wheezing Apixaban (Apixaban 2.5 Mg Tablet) 2.5 mg PO BID [facility] Last Admin: 08/26/21 22:00 Dose: 2.5 mg Documented by: Atorvastatin Calcium (Atorvastatin Calcium 10 Mg Tablet) 10 mg PO BEDTIME [place] Last Admin: 08/26/21 22:00 Dose: 10 mg Documented by: Clonazepam (Clonazepam 0.5 Mg Tablet) 0.5 mg PO BEDTIME [facility] Last Admin: 08/26/21 22:01 Dose: 0.5 mg Documented by: Diltiazem HCl (Diltiazem Hcl Cd 180 Mg Cap.Er.24h) 180 mg PO DAILY [facility]; Protocol Last Admin: 08/26/21 09:44 Dose: 180 mg Documented by: Duloxetine HCl (Duloxetine Hcl 20 Mg Capsule.Dr) 20 mg PO BID [facility] Last Admin: 08/26/21 22:01 Dose: 20 mg Documented by: Famotidine (Famotidine 20 Mg Tablet) 20 mg PO DAILY [facility] Last Admin: 08/26/21 09:44 Dose: 20 mg Documented by: Fenofibrate (Fenofibrate,Micronized 134 Mg Capsule) 134 mg PO DAILY [facility] Last Admin: 08/26/21 09:44 Dose: 134 mg Documented by: Fentanyl (Fentanyl Citrate/Pf 100 Mcg/2 Ml Vial) 50 mcg IVPUSH Q5M PRN; Protocol PRN Reason: Pain, Severe (Pain Scale 7-10) Hydralazine HCl (Hydralazine Hcl 50 Mg Tablet) 50 mg PO TID [facility]; Protocol Last Admin: 08/26/21 22:01 Dose: 50 mg Documented by: Hydromorphone HCl (Hydromorphone Hcl 0.5 Mg/0.5 Ml Syringe) 0.25 mg IVPUSH Q5M PRN; Protocol PRN Reason: Pain, Severe (Pain Scale 7-10) Last Admin: 08/24/21 19:10 Dose: 0.25 mg Documented by: Promethazine HCl 12.5 mg/ (Sodium Chloride) 50.5 mls @ 202 mls/hr IV ONCE PRN PRN Reason: Nausea and Vomiting Lisinopril (Lisinopril 10 Mg Tablet) 30 mg PO DAILY [facility]; Protocol Last Admin: 08/26/21 09:43 Dose: 30 mg Documented by: Melatonin (Melatonin 3 Mg Tablet) 6 mg PO BEDTIME PRN PRN Reason: Insomnia Last Admin: 08/26/21 00:12 Dose: 6 mg Documented by: Melatonin (Melatonin 3 Mg Tablet) 3 mg PO BEDTIME [facility] Last Admin: 08/26/21 22:00 Dose: 3 mg Documented by: Ondansetron HCl (Ondansetron Hcl 4 Mg/2 Ml Vial) 4 mg IVPUSH ONCE PRN PRN Reason: Nausea and Vomiting Oxycodone HCl (Oxycodone Hcl Immed Release 5 Mg Tablet) 5 mg PO Q6H [facility] Last Admin: 10/21/21 04:49 Dose: 5 mg Documented by: Pharmacy Consult (Consult Rx Perform Med Rec) 1 each MISCELLANE ONCE PRN PRN Reason: Consult order Ropinirole HCl (Ropinirole Hcl 0.25 Mg Tablet) 0.25 mg PO BID [facility] Last Admin: 08/26/21 22:01 Dose: 0.25 mg Documented by: Senna (Sennosides 8.6 Mg Tablet) 17.2 mg PO BEDTIME PRN PRN Reason: Constipation Senna (Sennosides 8.6 Mg Tablet) 8.6 mg PO BEDTIME [facility] Last Admin: 08/26/21 22:01 Dose: 8.6 mg Documented by: Sodium Chloride (0.9 % Sodium Chloride Flush 3 Ml Syringe) 3 ml IVFLUSH QSHIFT [facility] Last Admin: 08/26/21 22:06 Dose: 3 ml Documented by: Zolpidem Tartrate (Zolpidem Tartrate 5 Mg Tablet) 5 mg PO BEDTIME [facility] Last Admin: 08/26/21 22:01 Dose: 5 mg Documented by: Time Spent With Patient Time: Total time spent is greater than 50% in coordination of care (as documented) at patient's floor/unit and/or counseling patient: Time with patient: less than 15 minutes Quality Stroke Does the patient have a stroke diagnosis?: No VTE Prior VTE?: No VTE Risk Level:: Medical - moderate - high VTE Device Contraindication: N/A - Device Ordered VTE Drug Contraindication: Treatment Not Tolerated
[2021-08-27] MEDS: dilTIAZem HCL CD 180 MG CAP.ER.24H PO (10:16)
[2021-08-27] MEDS: DULoxetine HCl 20 MG CAPSULE.DR PO ×2 (10:17→20:22)
[2021-08-27] MEDS: rOPINIRole HCL 0.25 MG TABLET PO ×2 (10:17→20:23)
[2021-08-27] MEDS: lisinopriL 10 MG TABLET 30 MG PO (10:17)
[2021-08-27] MEDS: hydrALAZINE HCl 50 MG TABLET PO ×3 (10:17→20:22)
[2021-08-27] MEDS: Famotidine 20 MG TABLET PO (10:17)
[2021-08-27] MEDS: Fenofibrate,Micronized 134 MG CAPSULE PO (10:18)
[2021-08-27] MEDS: Apixaban 2.5 MG TABLET PO ×2 (10:18→20:23)
[2021-08-27] MEDS: 0.9 % Sodium Chloride Flush 3 ML SYRINGE IVFLUSH ×3 (10:19→20:23)
--- NOTE | 2021-08-27 11:00 | MHC.CDI.CONC ---
CDI Concurrent Query Documentation Clarification: PHYSICIAN'S DOCUMENTATION REQUEST Date of Query: 08/27/21 1100 Patient Name: Zofia Burt Admit Date: 08/21/21 Dear Doctor, A review of the medical record indicates additional documentation may be needed. Please review below and update the documentation accordingly. Risk Factors/Clinical Indicators/Treatments Per Nutritition note 08/26/21: PT IS MODERATELY MALNOURISHED PT WITH MILDLY DEPLETED SUBCUTANEOUS FAT AND MUSCLE MASS, BMI 17.2 AND 9% NONSIGNIFICANT WT LOSS X 1 YEAR. DIET RX: REGULAR-APPROPRIATE VARIABLE PO INTAKE PT RECEPTIVE TO DRINKING ENSURE (PREFERS CLAUDETTE) BID TO INCREASE KCALS SUPP TO PROVIDE 700KCALS, 40G PROTEIN STAGE 1 COCCYX-ENCOURAGE TO DRINK SUPPLEMENTS FOR INCREASED PO PROTEIN MONITOR PO INTAKE CLOSELY ASP[facility] Criteria* Acute Illness Chronic Illness Clinical Characteristic Non-Severe (2 or more criteria present) Severe (2 or more criteria present) Non-Severe (2 or more criteria present) Severe (2 or more criteria present) Energy Intake <75% for >7 days <=50% for >=5 days <75% for >=1 month <=75% for >=1 month Weight Loss 1 week 1 ? 2% >2% N/A N/A 1 month 5% >5% 5% >5% 3 months 7.5 % >7.5% 7.5% >7.5% 6 months N/A N/A 10% >10% 1 year N/A N/A 20% >20% Body Fat Mild Moderate Mild Severe Muscle Mass Mild Moderate Mild Severe Fluid Accumulation Mild Moderate to Severe Mild Severe Reduced Snack Steward Strength N/A Measurably Reduced N/A Measurably Reduced *[facility] Hospitalist, 2017 To ensure the quality of the medical record, based on the above information and the recognized standard for [specify severity] malnutrition, could you please verify in your progress notes which of the following diagnoses best reflects the patient's nutritional status. [Specify severity] malnutrition is/was present and is a clinical diagnosis (please include additional support in the medical record) No nutritional deficiency Other (please specify) Unable to determine Use of terms such as suspected, likely, concern for, or probable (associated with a specific diagnosis that is being evaluated, monitored, or treated as if it exists) are acceptable and can be coded in the inpatient setting, when documented at the time of discharge. Thank you, Blessing Craig RN Extension: [phone] Please use your independent medical judgment in providing your response. THIS QUERY IS PART OF THE PERMANENT MEDICAL RECORD Provider Response: Other Other Diagnosis: Unable to discern min exact source of malnutrition
--- NOTE | 2021-08-27 12:29 | P.PNIM_ITS ---
Subjective Subjective Date of Service: 08/27/21 Interval History: No acute issues overnight. Tolerated transfusion without issue Review of Systems Denies chest pain Denies shortness of breath Denies nausea vomiting diarrhea Physical Exam Vital Signs: Vital Signs: Last Vital Signs Temp 98.0 F 08/27/21 11:19 Pulse 75 08/27/21 11:19 Resp 18 08/27/21 11:19 BP 129/58 L 08/27/21 11:19 Pulse Ox 97 08/27/21 11:19 Body Mass Index 17.2 Const: Other: No acute distress HENMT: Other: Membranes moist oropharynx clear Resp: Other: Clear to auscultation all lui no rales rhonchi wheezes Cardio: Other: No S4; positive S1-S2; no S3 murmurs or gallops GI: Other: Soft nontender nondistended normoactive bowel sounds Extrem: Other: No edema bilaterally Objective Data Active Medications Acetaminophen (Acetaminophen 325 Mg Tablet) 650 mg PO Q6H PRN PRN Reason: Pain, Mild (Pain Scale 1-3) Last Admin: 08/26/21 00:13 Dose: 650 mg Documented by: MICHELLE Albuterol/Ipratropium (Albuterol/Iprat 2.5/0.5mg 3 Ml Ampul.Neb) 3 ml INHALE RQ4H PRN PRN Reason: Shortness of Breath/Wheezing Apixaban (Apixaban 2.5 Mg Tablet) 2.5 mg PO BID [facility] Last Admin: 08/27/21 10:18 Dose: 2.5 mg Documented by: NORY Atorvastatin Calcium (Atorvastatin Calcium 10 Mg Tablet) 10 mg PO BEDTIME [facility] Last Admin: 08/26/21 22:00 Dose: 10 mg Documented by: LINSEY Clonazepam (Clonazepam 0.5 Mg Tablet) 0.5 mg PO BEDTIME [facility] Last Admin: 08/26/21 22:01 Dose: 0.5 mg Documented by: LINSEY Diltiazem HCl (Diltiazem Hcl Cd 180 Mg Cap.Er.24h) 180 mg PO DAILY [facility]; Protocol Last Admin: 08/27/21 10:16 Dose: 180 mg Documented by: NORY Duloxetine HCl (Duloxetine Hcl 20 Mg Capsule.Dr) 20 mg PO BID [facility] Last Admin: 08/27/21 10:17 Dose: 20 mg Documented by: NORY Famotidine (Famotidine 20 Mg Tablet) 20 mg PO DAILY [facility] Last Admin: 08/27/21 10:17 Dose: 20 mg Documented by: NORY Fenofibrate (Fenofibrate,Micronized 134 Mg Capsule) 134 mg PO DAILY [facility] Last Admin: 08/27/21 10:18 Dose: 134 mg Documented by: NORY Fentanyl (Fentanyl Citrate/Pf 100 Mcg/2 Ml Vial) 50 mcg IVPUSH Q5M PRN; Protocol PRN Reason: Pain, Severe (Pain Scale 7-10) Hydralazine HCl (Hydralazine Hcl 50 Mg Tablet) 50 mg PO TID [facility]; Protocol Last Admin: 08/27/21 10:17 Dose: 50 mg Documented by: NORY Hydromorphone HCl (Hydromorphone Hcl 0.5 Mg/0.5 Ml Syringe) 0.25 mg IVPUSH Q5M PRN; Protocol PRN Reason: Pain, Severe (Pain Scale 7-10) Last Admin: 08/24/21 19:10 Dose: 0.25 mg Documented by: MISSY Promethazine HCl 12.5 mg/ (Sodium Chloride) 50.5 mls @ 202 mls/hr IV ONCE PRN PRN Reason: Nausea and Vomiting Lisinopril (Lisinopril 10 Mg Tablet) 30 mg PO DAILY [facility]; Protocol Last Admin: 08/27/21 10:17 Dose: 30 mg Documented by: NORY Melatonin (Melatonin 3 Mg Tablet) 6 mg PO BEDTIME PRN PRN Reason: Insomnia Last Admin: 08/26/21 00:12 Dose: 6 mg Documented by: MICHELLE Melatonin (Melatonin 3 Mg Tablet) 3 mg PO BEDTIME [facility] Last Admin: 08/26/21 22:00 Dose: 3 mg Documented by: LINSEY Ondansetron HCl (Ondansetron Hcl 4 Mg/2 Ml Vial) 4 mg IVPUSH ONCE PRN PRN Reason: Nausea and Vomiting Oxycodone HCl (Oxycodone Hcl Immed Release 5 Mg Tablet) 5 mg PO Q6H [facility] Last Admin: 08/27/21 10:19 Dose: 5 mg Documented by: NORY Pharmacy Consult (Consult Rx Perform Med Rec) 1 each MISCELLANE ONCE PRN PRN Reason: Consult order Ropinirole HCl (Ropinirole Hcl 0.25 Mg Tablet) 0.25 mg PO BID [facility] Last Admin: 08/27/21 10:17 Dose: 0.25 mg Documented by: NORY Senna (Sennosides 8.6 Mg Tablet) 17.2 mg PO BEDTIME PRN PRN Reason: Constipation Senna (Sennosides 8.6 Mg Tablet) 8.6 mg PO BEDTIME [facility] Last Admin: 08/26/21 22:01 Dose: 8.6 mg Documented by: LINSEY Sodium Chloride (0.9 % Sodium Chloride Flush 3 Ml Syringe) 3 ml IVFLUSH QSHIFT [facility] Last Admin: 08/27/21 10:19 Dose: 3 ml Documented by: NORY Zolpidem Tartrate (Zolpidem Tartrate 5 Mg Tablet) 5 mg PO BEDTIME [facility] Last Admin: 08/26/21 22:01 Dose: 5 mg Documented by: LINSEY Labs CBC & Chem 7: 08/27/21 06:02 08/27/21 06:02 Labs: Laboratory Results - last 24 hr 08/21/21 08/26/21 08/27/21 21:13 09:03 06:02 MCV 86.1 MCH 28.5 MCHC 33.1 RDW 15.6 Plt Count 170 MPV 10.4 Immature Gran % (Auto) 0.7 H Neut % (Auto) 80.7 H Lymph % (Auto) 6.0 L [place] % (Auto) 11.7 H Eos % (Auto) 0.7 Baso % (Auto) 0.2 Lymph # (Auto) 0.6 L [place] # (Auto) 1.2 Eos # (Auto) 0.1 Baso # (Auto) 0.0 Abs Immat Gran (auto) 0.07 H Absolute Neuts (auto) 8.2 Absolute Nucleated RBC 0.000 Nucleated RBC % (auto) 0.0 Anion Gap Estim Creat Clear Calc Estimated GFR Fasting Glucose Calcium Total Bilirubin AST ALT Alkaline Phosphatase Total Protein Albumin Crossmatch See Detail See Detail 08/27/21 06:02 MCV MCH MCHC RDW Plt Count MPV Immature Gran % (Auto) Neut % (Auto) Lymph % (Auto) [place] % (Auto) Eos % (Auto) Baso % (Auto) Lymph # (Auto) [place] # (Auto) Eos # (Auto) Baso # (Auto) Abs Immat Gran (auto) Absolute Neuts (auto) Absolute Nucleated RBC Nucleated RBC % (auto) Anion Gap 11 L Estim Creat Clear Calc 42.9 Estimated GFR > 60 Fasting Glucose 125 H Calcium 9.0 Total Bilirubin 1.2 H AST 29 ALT 13 Alkaline Phosphatase 30 L Total Protein 5.4 L Albumin 3.3 L Crossmatch Assessment and Plan (1) Intertrochanteric fracture of right femur: Status: Acute (2) HTN (hypertension): Status: Acute (3) Acute blood loss anemia: Status: Acute Assessment and Plan: 81yoF with persistent atrial fibrillation, pacemaker placement for complete heart block, severe pulmonary hypertension, hypertension.? She lives at home alone and yesterday had an accidental fall and came to the hospital with right hip pain.? She was noted to have right hip fracture s/p ORIF 1Intertrochanteric Right hip Fx s/p ORIF Doing well; further plans as per Ortho. No prohibitive medical issues to transfer to SNF 2.Anemia Good response to transfusion. Hemoglobin stable. No further treatment indicated 3. Chronic Atrial Fibrillation Rate well control. Will continue Cardizem. Eliquis 2.5 mg b.i.d. 4. COPD/pulmonary hypertension Continue Lasix hydralazine lisinopril as ordered DVT prophylaxis - Eliquis t Full code Quality Stroke Does the patient have a stroke diagnosis?: No VTE Prior VTE?: No VTE Risk Level:: Medical - moderate - high VTE Device Contraindication: N/A - Device Ordered VTE Drug Contraindication: Treatment Not Tolerated
[2021-08-27] MEDS: Sennosides 8.6 MG TABLET PO (20:22)
[2021-08-27] MEDS: Atorvastatin Calcium 10 MG TABLET PO (20:23)
[2021-08-27] MEDS: clonazePAM 0.5 MG TABLET PO (20:23)
[2021-08-27] MEDS: Melatonin 3 MG TABLET PO (20:23)
[2021-08-27] MEDS: Zolpidem Tartrate 5 MG TABLET PO (20:23)
[2021-08-28 03:40] VITALS: BP 160/71; PULSE 77; RESP 18; TEMP 36.7; O2SAT 95
[2021-08-28] MEDS: oxyCODONE HCl Immed Release 5 MG TABLET PO ×2 (04:10→10:01)
[2021-08-28 06:10] LABS: MANUAL DIFF FLAG NO
[2021-08-28 06:17] LABS: Basophils Percent Auto 0.1 % (0-2); Eosinophils Absolute Auto 0.1 X10*3/uL (0.0-0.4); Hematocrit 32.3 % (37-47); Hemoglobin 10.6 g/dl (12.0-16.0); Imm Gran Abs Auto 0.03 X10*3/uL (0.00-0.03); Imm Gran Pct Auto 0.3 % (0.0-0.4); Lymphocytes Absolute Auto 0.8 X10*3/uL (1.2-4.9); Lymphocytes Percent Auto 8.3 % (20-40); Mean Corpuscular HGB Conc 32.8 g/dl (31.0-35.0); Mean Corpuscular Hemoglobin 28.5 pg (27.0-33.0); Mean Corpuscular Volume 86.8 fL (80-98); Mean Platelet Volume 10.1 fL (9.4-12.3); Monocytes Absolute Auto 1.2 X10*3/uL (0.1-1.2); Monocytes Percent Auto 13.7 % (2-11); Neutrophils Absolute Auto 6.9 X10*3/uL (2.0-8.3); Neutrophils Percent Auto 76.6 % (45-73); Platelet Count 191 X10*3/uL (160-400); Red Blood Count 3.72 X10*6/uL (4.20-5.50); Red Cell Distribution Width 15.7 % (11.0-16.0); White Blood Count 9.1 X10*3/uL (4.8-10.8)
[2021-08-28 08:00] VITALS: BP 159/68; PULSE 75; RESP 18; TEMP 37.1; O2SAT 92
[2021-08-28 09:57] VITALS: BP 159/68; PULSE 75
[2021-08-28] MEDS: Famotidine 20 MG TABLET PO (09:57)
[2021-08-28] MEDS: DULoxetine HCl 20 MG CAPSULE.DR PO (09:57)
[2021-08-28] MEDS: dilTIAZem HCL CD 180 MG CAP.ER.24H PO (09:57)
[2021-08-28 09:58] VITALS: BP 159/68; PULSE 75
[2021-08-28] MEDS: hydrALAZINE HCl 50 MG TABLET PO (09:58)
[2021-08-28] MEDS: rOPINIRole HCL 0.25 MG TABLET PO (09:58)
[2021-08-28] MEDS: lisinopriL 10 MG TABLET 30 MG PO (09:58)
[2021-08-28] MEDS: Fenofibrate,Micronized 134 MG CAPSULE PO (09:58)
[2021-08-28] MEDS: Apixaban 2.5 MG TABLET PO (09:59)
[2021-08-28] MEDS: 0.9 % Sodium Chloride Flush 3 ML SYRINGE IVFLUSH (10:01)
[2021-08-28 10:05] VITALS: BP 159/68; PULSE 75
--- NOTE | 2021-08-28 11:41 | PM.DS ---
DS: Providers Provider Date of Service: 08/28/21 Date of admission: 08/21/21 20:51 Date of discharge: 08/28/21 Primary care physician: Flavio Weinstein MD Consults: 08/21/21 20:51 Consult to Cardiology Routine Consulting Provider: Isiah Prescott Reason for consultation: pt with heart dz, afib, pacemaker; p/w fall/hematoma; hip fx; preop eval Consult to Orthopedics Routine Consulting Provider: Genaro Blakely Reason for consultation: Hip Fx DS: Diagnosis Discharge Diagnosis (1) Intertrochanteric fracture of right femur: Status: Acute (2) HTN (hypertension): Status: Acute (3) Acute blood loss anemia: Status: Acute DS: Summary Hospital Course Hospital Course: 81yoF with? persistent atrial fibrillation, pacemaker placement for complete heart block, severe pulmonary hypertension, hypertension.? She lives at home alone and yesterday had an accidental fall and came to the hospital with right hip pain.? She was noted to have right hip fracture s/p ORIF Hospital course On 08/24/2021 patient was taken to the OR by Orthopedics and underwent ORIF of right hip. Surgery was uneventful however subsequently she had hematoma related to her fall. Her hemoglobin dropped and she required 2 units of packed cells. She tolerated transfusion well. Since that time her hemoglobin has remained stable and she is medically acceptable for transfer to SNF Time Spent with Patient Time attestation: Total time spent providing and/or coordinating discharge services: Discharge coordination time: Greater than 30 minutes Quality: Stroke Does the patient have a stroke diagnosis?: No Physical Exam Vital Signs: Vital Signs: Last Vital Signs Temp 98.8 F 08/28/21 08:00 Pulse 75 08/28/21 10:05 Resp 18 08/28/21 08:00 BP 159/68 H 08/28/21 10:05 Pulse Ox 92 08/28/21 08:00 Body Mass Index 17.2 Const: Other: No acute distress HENMT: Other: Membranes moist oropharynx clear Resp: Other: Clear to auscultation all lui no rales rhonchi wheezes Cardio: Other: No S4; positive S1-S2; no S3 murmurs or gallops GI: Other: Soft nontender nondistended normoactive bowel sounds Extrem: Other: No edema bilaterally DS: Data Data Completed and Pending Labs on day of discharge: Laboratory Results - last 24 hr 08/21/21 08/28/21 21:13 05:51 WBC 9.1 RBC 3.72 L Hgb 10.6 L Hct 32.3 L MCV 86.8 MCH 28.5 MCHC 32.8 RDW 15.7 Plt Count 191 MPV 10.1 Immature Gran % (Auto) 0.3 Neut % (Auto) 76.6 H Lymph % (Auto) 8.3 L [place] % (Auto) 13.7 H Eos % (Auto) 1.0 Baso % (Auto) 0.1 Lymph # (Auto) 0.8 L [place] # (Auto) 1.2 Eos # (Auto) 0.1 Baso # (Auto) 0.0 Abs Immat Gran (auto) 0.03 Absolute Neuts (auto) 6.9 Absolute Nucleated RBC 0.000 Nucleated RBC % (auto) 0.0 Crossmatch See Detail Discharge Plan Discharge Patient Disposition: Xfer Inpatient Rehab Fac Discharge Diagnosis: Right hip fracture Referrals: [facility] [Other] - 1 Week Flavio Weinstein MD [Primary Care Provider] - 1 Week Discharge Medications: New ferrous sulfate [iron] 325 mg (65 mg iron) tablet 325 mg PO DAILY Qty: 30 RF: 0 ascorbic acid (vitamin C) 500 mg capsule 500 mg PO DAILY Qty: 30 RF: 0 Continued albuterol sulfate [ProAir HFA] 90 mcg/actuation HFA aerosol inhaler 2 puff inhalation Q6H PRN (Reason: shortness of breath or wheezing) 30 Days Qty: 18 RF: 5 clonazepam 0.5 mg Tablet 0.5 mg PO BEDTIME RF: 0 diltiazem HCl 180 mg Capsule,Ext.Rel 24h Degradable 180 mg PO DAILY RF: 0 sennosides [senna] 8.6 mg Tablet 8.6 mg PO BEDTIME RF: 0 melatonin 3 mg Tablet 3 mg PO BEDTIME RF: 0 famotidine 20 mg Tablet 20 mg PO BID RF: 0 ropinirole 0.25 mg Tablet 0.25 mg PO BID RF: 0 simvastatin 20 mg Tablet 20 mg PO BEDTIME RF: 0 docusate sodium 100 mg Capsule 100 mg PO BID RF: 0 hydralazine 50 mg Tablet 50 mg PO TID RF: 0 furosemide 20 mg Tablet 40 mg PO DAILY RF: 0 zolpidem 10 mg Tablet 10 mg PO BEDTIME RF: 0 oxycodone 5 mg Tablet 5 mg PO Q6H RF: 0 duloxetine 20 mg Capsule,Delayed Release(Dr/Ec) 20 mg PO BID RF: 0 fenofibrate nanocrystallized 145 mg Tablet 145 mg PO DAILY RF: 0 Eliquis 5 mg Tablet 5 mg PO BID RF: 0 lisinopril 30 mg Tablet 30 mg PO DAILY RF: 0 arformoterol [Brovana] 15 mcg/2 mL Solution For Nebulization 2 ml INHALATION BID RF: 0 Discharge Orders: Discharge Order (Routine); Ordered 08/28/21 Ordered By: Tito Berrios Diet: advance to usual diet Activity on Discharge: As tolerated Stand Alone Forms: Patient Portal Discharge page Care Plan Goals: Maintain highest level of function Health Concerns: RN supplementation Plan of Treatment: Physical therapy as per receiving facility Assessment: Improved
--- NOTE | 2021-08-28 11:46 | MHC.CM.NN ---
pt to be dcd to [facility] today at 2:00 [facility] arranging transportation
--- NOTE | 2021-08-28 11:47 | MHC.CM.PN ---
levi white will be imforming family of dc as well
[2021-08-28 11:58] VITALS: BP 91/51; PULSE 60; RESP 18; TEMP 37.2; O2SAT 99
== END 2021-08-28 15:10 | DRG 481 ==
LOC: HO.ED 19:47 → HO.EDOVER 21:43 → HO.IMC 08-22 17:41
PROVIDERS: Internal Medicine; Orthopaedic Surgery; Admitting Provider Hospitalist; Emergency Provider Emergency Medicine Emergency Medical Services; PCP Internal Medicine Rheumatology; Visit Provider Hospitalist
DX: S72.141A Displaced intertrochanteric fracture of right femur, initial encounter for closed fracture (principal); I48.19 Other persistent atrial fibrillation; D62 Acute posthemorrhagic anemia; W01.10XA Fall on same level from slipping, tripping and stumbling with subsequent striking against unspecified object, initial encounter; Y93.9 Activity, unspecified; Y92.009 Unspecified place in unspecified non-institutional (private) residence as the place of occurrence of the external cause; F17.210 Nicotine dependence, cigarettes, uncomplicated; Z71.6 Tobacco abuse counseling; Z20.822 Contact with and (suspected) exposure to COVID-19; I27.20 Pulmonary hypertension, unspecified; Z95.0 Presence of cardiac pacemaker; E78.5 Hyperlipidemia, unspecified; I71.4 Abdominal aortic aneurysm, without rupture; S30.0XXA Contusion of lower back and pelvis, initial encounter; J44.9 Chronic obstructive pulmonary disease, unspecified; Z23 Encounter for immunization; Z88.0 Allergy status to penicillin; Z88.6 Allergy status to analgesic agent; Z79.01 Long term (current) use of anticoagulants; Z79.891 Long term (current) use of opiate analgesic; Z79.899 Other long term (current) drug therapy
CPT/HCPCS: 36415; 70450; 72125; 73502; 74174; 74176; 80048; 80053; 85025; 85027; 85610; 85730; 86850; 86900; 86901; 86923; 87635; 90686; 93005; 93306; 94640; 96374; 97110; 97116; 97162; 97166; 99285; C1713; C1769; J0131; J0690; J1170; J1940; J2370; J3010; P9016; Q9967

== ENCOUNTER 2021-09-25 07:40 | Outpatient (REF) | payer OTHER, SELFPAY | END 2021-09-25 07:41 | disposition home or self-care (01) | LOC: HO.HOSX 07:40 | PROVIDERS: Visit Provider Physician Assistant | DX: Z13.89 Encounter for screening for other disorder (principal) ==

== ENCOUNTER 2021-10-05 07:24 | Outpatient (REF) | payer OTHER, SELFPAY | END 2021-10-05 07:25 | disposition home or self-care (01) | LOC: HO.HOSX 07:24 | PROVIDERS: Visit Provider Physician Assistant | DX: Z13.89 Encounter for screening for other disorder (principal) ==

== ENCOUNTER → 2022-01-20 13:29 | Outpatient (BNVA) | payer OTHER, SELFPAY | PROVIDERS: PCP Internal Medicine; Visit Provider Nurse Practitioner Family | DX: Z45.018 Encounter for adjustment and management of other part of cardiac pacemaker (principal); I44.2 Atrioventricular block, complete; I48.19 Other persistent atrial fibrillation; I27.20 Pulmonary hypertension, unspecified; I10 Essential (primary) hypertension | CPT/HCPCS: 93005; 99212 ==

== ENCOUNTER 2022-11-30 05:46 | Outpatient (REF) | payer OTHER, SELFPAY ==
[2022-11-30 05:49] LABS: MANUAL DIFF FLAG NO
[2022-11-30 06:05] LABS: Basophils Percent Auto 0.4 % (0-2); Eosinophils Absolute Auto 0.1 X10*3/uL (0.0-0.4); Eosinophils Percent Auto 1.5 % (0-4); Hematocrit 32.5 % (37.0-47.0); Imm Gran Abs Auto 0.03 X10*3/uL (0.00-0.03); Imm Gran Pct Auto 0.4 % (0.0-0.4); Lymphocytes Absolute Auto 1.3 X10*3/uL (1.2-4.9); Lymphocytes Percent Auto 15.4 % (20-40); Mean Corpuscular HGB Conc 30.8 g/dl (31.0-35.0); Mean Corpuscular Hemoglobin 25.4 pg (27.0-33.0); Mean Corpuscular Volume 82.5 fL (80.0-98.0); Mean Platelet Volume 10.3 fL (9.4-12.3); Monocytes Absolute Auto 0.9 X10*3/uL (0.1-1.2); Monocytes Percent Auto 11.2 % (2-11); Neutrophils Absolute Auto 5.8 x10*3/uL (2.0-8.3); Neutrophils Percent Auto 71.1 % (45-73); Platelet Count 183 X10*3/uL (160-400); Red Blood Count 3.94 X10*6/uL (4.20-5.50); Red Cell Distribution Width 15.9 % (11.0-16.0); White Blood Count 8.1 X10*3/uL (4.8-10.8)
[2022-11-30 06:29] LABS: Alanine Aminotransferase 7 U/L (0-31); Albumin Level 3.6 g/dL (3.5-5.0); Alkaline Phosphatase 54 U/L (39-117); Anion Gap 12 (12-20); Aspartate Amino Transferase 13 U/L (5-31); Bilirubin Total 0.6 mg/dL (0.0-1.0); Blood Urea Nitrogen 17 mg/dL (9-16); Calcium 9.1 mg/dL (8.4-10.2); Carbon Dioxide 32 mmol/L (22-29); Chloride 99 mmol/L (96-108); Estimated Glomerular Filt Rate > 60; Glucose Random 99 mg/dL (60-115); Potassium 3.2 mmol/L (3.3-5.1); Sodium 140 mmol/L (135-145); Total Protein 5.8 g/dL (6.5-8.0)
== END 2022-11-30 05:47 | disposition home or self-care (01) ==
LOC: HO.MMNH1L 05:46
PROVIDERS: Visit Provider Family Medicine
DX: I10 Essential (primary) hypertension (principal)
CPT/HCPCS: 36415; 80053; 85025

== ENCOUNTER 2022-12-06 07:09 | Outpatient (REF) | payer OTHER, SELFPAY ==
[2022-12-06 06:51] LABS: MANUAL DIFF FLAG NO
[2022-12-06 07:34] LABS: Basophils Absolute Auto 0.1 X10*3/uL (0.0-0.2); Basophils Percent Auto 0.6 % (0-2); Eosinophils Absolute Auto 0.2 X10*3/uL (0.0-0.4); Hematocrit 32.3 % (37.0-47.0); Hemoglobin 9.8 g/dl (12.0-16.0); Imm Gran Abs Auto 0.05 X10*3/uL (0.00-0.03); Imm Gran Pct Auto 0.5 % (0.0-0.4); Lymphocytes Absolute Auto 1.7 X10*3/uL (1.2-4.9); Lymphocytes Percent Auto 16.9 % (20-40); Mean Corpuscular HGB Conc 30.3 g/dl (31.0-35.0); Mean Corpuscular Hemoglobin 25.1 pg (27.0-33.0); Mean Corpuscular Volume 82.8 fL (80.0-98.0); Mean Platelet Volume 10.8 fL (9.4-12.3); Monocytes Absolute Auto 1.2 X10*3/uL (0.1-1.2); Monocytes Percent Auto 11.7 % (2-11); Neutrophils Absolute Auto 6.7 x10*3/uL (2.0-8.3); Neutrophils Percent Auto 68.3 % (45-73); Platelet Count 245 X10*3/uL (160-400); Red Cell Distribution Width 15.9 % (11.0-16.0); White Blood Count 9.8 X10*3/uL (4.8-10.8)
[2022-12-06 08:30] LABS: Anion Gap 18 (12-20); Blood Urea Nitrogen 35 mg/dL (9-16); Calcium 9.4 mg/dL (8.4-10.2); Carbon Dioxide 30 mmol/L (22-29); Chloride 97 mmol/L (96-108); Estimated Glomerular Filt Rate 41; Glucose Random 98 mg/dL (60-115); Potassium 5.4 mmol/L (3.3-5.1); Sodium 140 mmol/L (135-145)
== END 2022-12-06 07:10 | disposition home or self-care (01) ==
LOC: HO.MMNH1L 07:09
PROVIDERS: Visit Provider Family Medicine
DX: I10 Essential (primary) hypertension (principal)
CPT/HCPCS: 36415; 80048; 85025

== ENCOUNTER → 2023-06-03 23:59 | Outpatient (BNV) | payer OTHER, SELFPAY ==
--- NOTE | 2023-06-11 13:50 | MHC.OFFVIS ---
Intake Intake Visit Reasons: Remote Device Check- [place] Allergies amoxicillin [Amoxicillin] Allergy (Severe, Verified 01/20/22 13:31) NAUSEA/VOMITING aspirin [Aspirin] Allergy (Severe, Verified 01/20/22 13:31) GASTRITIS ibuprofen [From Motrin] Allergy (Severe, Verified 12/09/22 13:10) gastritis, difficulty breathing erythromycin base [Erythromycin Base] Adverse Reaction (Severe, Verified 12/09/22 13:10) Headache, Migraines PFSH Medical History (Updated 01/21/22 @ 10:13 by Roxann Wiley NP-C) AAA (abdominal aortic aneurysm) Complete heart block COPD (chronic obstructive pulmonary disease) HTN (hypertension) Nocturnal hypoxemia Persistent atrial fibrillation Pulmonary hypertension Surgical History (Updated 01/21/22 @ 10:15 by MARYAM Price) Pacemaker Social History Household Members: None Housing: Apartment Do you presently have visiting nurse or other home services: Yes ([employer] for housework) Patient Tobacco Use Status: Current everyday Tobacco user Tobacco use type: Cigarette Cigarette Packs Per Day: 0.5 Cigarettes Per Day: 8 Years Smoked: 72 e-Cigarette/Vaping Use: Never Used Advance Directives Date on File: 08/22/21 service: No Current occupational status: retired Office Procedures Cardiac Device Check Cardiac Device Check Details: Date of service- 06/03/2023 ; Battery life 4.9 years; normal lead parameters; AP 29%; [employer] >99%; AT/AF burden 2.2%, but controlled rates. Overall normal device function. [id number] Cardiac Device Interrogation, pacemaker Procedure code (CPT) selection complete Assessment & Plan Assessment & Plan (1) Persistent atrial fibrillation: Code(s): I48.19 - Other persistent atrial fibrillation Coding Level of Care Code Procedure Only Diagnoses Persistent atrial fibrillation I48.19 CPT Codes Cardiac Device Check - Cardiac Device 12: [id number] Cardiac Device Interrogation, pacemaker ([id number])
== END ==
PROVIDERS: PCP Internal Medicine; Visit Provider Internal Medicine
DX: I48.19 Other persistent atrial fibrillation (principal); Z95.0 Presence of cardiac pacemaker
CPT/HCPCS: 93294

== ENCOUNTER → 2023-09-02 23:59 | Outpatient (BNV) | payer OTHER, SELFPAY ==
--- NOTE | 2023-09-07 08:12 | MHC.OFFVIS ---
Intake Intake Visit Reasons: Remote Device Check- [place] Allergies amoxicillin [Amoxicillin] Allergy (Severe, Verified 01/20/22 13:31) NAUSEA/VOMITING aspirin [Aspirin] Allergy (Severe, Verified 01/20/22 13:31) GASTRITIS ibuprofen [From Motrin] Allergy (Severe, Verified 12/09/22 13:10) gastritis, difficulty breathing erythromycin base [Erythromycin Base] Adverse Reaction (Severe, Verified 12/09/22 13:10) Headache, Migraines PFSH Medical History (Updated 01/21/22 @ 10:13 by Roxann Wiley NP-C) Nocturnal hypoxemia Complete heart block HTN (hypertension) COPD (chronic obstructive pulmonary disease) AAA (abdominal aortic aneurysm) Pulmonary hypertension Persistent atrial fibrillation Surgical History (Updated 01/21/22 @ 10:15 by MARYAM Price) Pacemaker Social History Household Members: None Housing: Apartment Do you presently have visiting nurse or other home services: Yes ([employer] for housework) Patient Tobacco Use Status: Current everyday Tobacco user Tobacco use type: Cigarette Cigarette Packs Per Day: 0.5 Cigarettes Per Day: 8 Years Smoked: 72 e-Cigarette/Vaping Use: Never Used Advance Directives Date on File: 08/22/21 service: No Current occupational status: retired Office Procedures Cardiac Device Check Cardiac Device Check Details: Date of service- 09/02/2023 ; Battery life >4 years; normal lead parameters; AP 26%; [employer] >99%; AT/AF burden 1.5%. Overall normal device function. [id number] Cardiac Device Interrogation, pacemaker Procedure code (CPT) selection complete Assessment & Plan Assessment & Plan (1) Persistent atrial fibrillation: Code(s): I48.19 - Other persistent atrial fibrillation Coding Level of Care Code Procedure Only Diagnoses Persistent atrial fibrillation I48.19 CPT Codes Cardiac Device Check - Cardiac Device 12: [id number] Cardiac Device Interrogation, pacemaker ([id number])
== END ==
PROVIDERS: PCP Internal Medicine; Visit Provider Internal Medicine
DX: I48.19 Other persistent atrial fibrillation (principal); Z95.0 Presence of cardiac pacemaker
CPT/HCPCS: 93294

== ENCOUNTER 2023-10-21 13:35 | Outpatient (AMB) | payer OTHER, SELFPAY ==
[2023-10-21 13:39] VITALS: BP 114/50; PULSE 64; BMI 17.3
--- NOTE | 2023-10-21 13:39 | MHC.OFFVIS ---
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 Flying Required: No Allergies amoxicillin [Amoxicillin] Allergy (Severe, Verified 10/21/23 13:45) NAUSEA/VOMITING aspirin [Aspirin] Allergy (Severe, Verified 10/21/23 13:45) GASTRITIS ibuprofen [From Motrin] Allergy (Severe, Verified 10/21/23 13:45) gastritis, difficulty breathing erythromycin base [Erythromycin Base] Adverse Reaction (Severe, Verified 10/21/23 13:45) Headache, Migraines Medication List - Last Reconciled 10/21/23 by MARYAM Price albuterol sulfate 90 mcg/actuation (ProAir HFA) 2 puffs inhalation Q6H PRN 30 days apixaban (Eliquis) 2.5 mg PO BID 30 days clonazepam 0.5 mg PO BEDTIME diltiazem HCl ER 180 mg PO DAILY duloxetine 60 mg PO DAILY famotidine 20 mg PO BID furosemide 20 mg PO DAILY hydralazine 50 mg PO TID isosorbide dinitrate 10 mg PO TID lisinopril 10 mg PO DAILY melatonin 3 mg PO BEDTIME potassium chloride ER 20 mEq PO QDAY ropinirole 0.25 mg PO BID sennosides (senna) 8.6 mg PO BEDTIME HPI orthostatic hypotension per ankit 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 She was sent back by PCP for orthostatic hypotension. Today she reports that when she is standing she feels lightheaded. She walks only short distances in her home using a walker. Today she is sitting in a wheelchair. She does not get dizziness or lightheadedness with sitting or laying down. She tells me she drinks fluids all day long including water, tea, soda. She is taking all meds as directed. She lives in an assisted living facility and they lay her meds out for her. She does not get chest discomfort at rest or with activity. She will get some shortness of breath with activity which is not new. No palpitations, presyncope, syncope. No PND, orthopnea or edema. [facility] Medical History Nocturnal hypoxemia Complete heart block HTN (hypertension) COPD (chronic obstructive pulmonary disease) AAA (abdominal aortic aneurysm) Pulmonary hypertension Persistent atrial fibrillation Surgical History Pacemaker Social History Household Members: None Housing: Apartment Do you presently have visiting nurse or other home services: Yes (control systems eng for housework) Patient Tobacco Use Status: Current everyday Tobacco user Tobacco use type: Cigarette Cigarette Packs Per Day: 0.5 Cigarettes Per Day: 8 Years Smoked: 72 e-Cigarette/Vaping Use: Never Used Advance Directives Date on File: 08/22/21 service: No Current occupational status: retired Review of Systems Const All systems reviewed & are unremarkable except as noted in HPI and below ENT Details: Lightheaded in upright position frequently Reports dizziness Card Denies chest pain, Denies chest pain at rest, Denies chest pain with activity, Denies rapid heart rate, Denies pedal edema, Denies edema, Denies leg edema, Denies lightheadedness, Denies palpitations, Denies dyspnea, Denies dyspnea on exertion and Denies orthopnea Resp Denies cough, Denies dyspnea and Denies dyspnea on exertion GI Denies hematochezia and Denies change in stool character Musc Details: ambulates only short distances with walker Denies abnormal gait, Denies limited range of motion, Denies muscle cramps, Denies muscle weakness, Denies numbness, Denies radiating pain into limb, Denies stiffness and Denies tingling Neuro Denies abnormal gait, Reports dizziness, Denies numbness and Denies tingling Endo Denies palpitations Physical Exam Vital Signs: Last Vital Signs Pulse 64 10/21/23 13:39 BP 114/50 L 10/21/23 13:39 BMI result Body Mass Index 17.3 Const Other: Frail elderly female sitting in a wheelchair General: cooperative, comfortable and no acute distress Orientation/consciousness: patient oriented x3 Neck Neck: Yes normal visual inspection Resp Effort & Inspection: normal respiratory effort Auscultation: clear to auscultation bilaterally, no crackles, no rales, no rhonchi and no wheezes Cardio Jugular venous distension: no JVD Rate: regular rate Rhythm: regular rhythm Heart sounds: S1 normal heart sound present, S2 normal heart sound present, no murmurs and no rubs Neuro General: patient oriented x3 Extrem General: Yes normal to inspection Psych Appearance: grossly normal Mental Status: mental status grossly normal Speech and movement: Normal speech and movement present Office Procedures Cardiac Device Check Cardiac Device Check Details: Interrogation today, [place] dual-chamber pacemaker, battery 10.2 yrs, atrial and ventricular thresholds in normal range, lead impedance stable, DDD mode, low rate 60, V paced greater than 99%, a paced 29%, 80 AF less than 1% since 09/02/2023. [id number] Cardiac Device Check, pacemaker dual lead Procedure code (CPT) selection complete EKG Details: Today, read by me, atrial sensed, ventricular paced rhythm, rate 64, QTC 476 [id number], Complete Assessment & Plan Assessment & Plan (1) Orthostatic hypotension: Code(s): I95.1 - Orthostatic hypotension Plan: PCP asked that we see her for orthostatic hypotension. Patient does report symptom of lightheadedness with being upright. She reports good fluid intake. She is orthostatic on exam today with blood pressure sitting 118/62, blood pressure standing 104/42. Medication list reviewed. She is on diltiazem, Lasix, isosorbide, lisinopril for hypertension/pulmonary hypertension. Her last echocardiogram done on 08/22/2021 showed EF 55-60%, normal valves, moderate increase in the RV systolic pressure. A see no clear indication for isosorbide on her. She is currently taking 10 mg t.i.d.. Will have her stop isosorbide. If blood pressure continues to be low then her lisinopril dose can be reduced. She does have some chronic kidney disease with GFR 41 on 12/06/2022. She has a history of paroxysmal atrial fibrillation. EKG today showing a sensed, V paced rhythm, rate 64. If further med reductions are needed then diltiazem could be reduced down to 120 mg daily if blood pressure remained low. She is also on medications that can potentially cause orthostatic hypotension as a side effect: Ropinirole, Duloxetine and Clonazepam. She has not had recent med changes but use of these medicines can be re-evaluated. She also takes oxycodone which can contribute to hypotension. Reviewed the need for ongoing good hydration, using much caution when going sitting to standing. Sit down if she becomes lightheaded. Is ambulate with assistive device, walker at home. Compression stockings can be used however she will likely have difficulty applying knees. She tells me that her blood pressure is monitored at her assisted living facility. She is also following with her PCP. Will send my note from today to her PCP. Cardiology office visit in 6 months, sooner if needed. (2) Lightheaded: Code(s): R42 - Dizziness and giddiness Plan: As above (3) Pacemaker: Comment: [place] dual chamber Code(s): Z95.0 - Presence of cardiac pacemaker Plan: [place] dual-chamber pacemaker interrogation today shows device is functioning normally. She has remote monitoring in use. Next office interrogation due in 6 months. (4) Complete heart block: Code(s): I44.2 - Atrioventricular block, complete Plan: Pacemaker in place (5) Persistent atrial fibrillation: Code(s): I48.19 - Other persistent atrial fibrillation Plan: AFib is no longer persistent. Currently paroxysmal with a T AF burden less than 1% on device interrogation today. EKG from today is showing a sensed, V paced rhythm. Clear P waves are noted. She does not feel heart palpitations. She is on diltiazem for heart rate control. She is on Eliquis for anticoagulation. Renal dose due to age and weight. No bleeding issues reported. (6) Pulmonary hypertension: Code(s): I27.20 - Pulmonary hypertension, unspecified Plan: Patient reports some shortness of breath with activity. Breathing comfortable at rest. She is on low-dose Lasix. No signs of heart failure on exam. Continue current management Plan Time spent on chart review, documentation, interview and assessment Coding Level of Care Code Est Pt Level 4 (36432) Diagnoses Orthostatic hypotension I95.1 Lightheaded R42 Pacemaker Z95.0 Complete heart block I44.2 Persistent atrial fibrillation I48.19 Pulmonary hypertension I27.20 CPT Codes Cardiac Device Check - Cardiac Device 2: 33048-[id number] Cardiac Device Check, pacemaker dual lead ([id number]) EKG - CPT: 84024-[id number], Complete ([id number]) Time Spent (min) 28
== END 2023-10-21 14:22 | disposition home or self-care (01) ==
PROVIDERS: PCP Internal Medicine; Visit Provider Nurse Practitioner Family
DX: I95.1 Orthostatic hypotension (principal); I44.2 Atrioventricular block, complete; I48.19 Other persistent atrial fibrillation; Z95.0 Presence of cardiac pacemaker
CPT/HCPCS: 93280; 99214

== ENCOUNTER → 2023-10-21 13:35 | Outpatient (BNVA) | payer OTHER, SELFPAY | PROVIDERS: PCP Internal Medicine; Visit Provider Nurse Practitioner Family | DX: Z45.018 Encounter for adjustment and management of other part of cardiac pacemaker (principal); I95.1 Orthostatic hypotension; I27.20 Pulmonary hypertension, unspecified; R42 Dizziness and giddiness; I44.2 Atrioventricular block, complete; I48.19 Other persistent atrial fibrillation | CPT/HCPCS: 93005; 93280; 99212 ==

== ENCOUNTER → 2023-12-02 23:59 | Outpatient (BNV) | payer OTHER, SELFPAY ==
--- NOTE | 2023-12-06 13:50 | MHC.OFFVIS ---
Intake Intake Visit Reasons: Remote Device Check- [place] Allergies amoxicillin [Amoxicillin] Allergy (Severe, Verified 10/21/23 13:45) NAUSEA/VOMITING aspirin [Aspirin] Allergy (Severe, Verified 10/21/23 13:45) GASTRITIS ibuprofen [From Motrin] Allergy (Severe, Verified 10/21/23 13:45) gastritis, difficulty breathing erythromycin base [Erythromycin Base] Adverse Reaction (Severe, Verified 10/21/23 13:45) Headache, Migraines PFSH Medical History (Reviewed 10/21/23 @ 15: by Roxann Wiley NP-C) Nocturnal hypoxemia Complete heart block HTN (hypertension) COPD (chronic obstructive pulmonary disease) AAA (abdominal aortic aneurysm) Pulmonary hypertension Persistent atrial fibrillation Surgical History (Reviewed 10/21/23 @ 15: by MARYAM Price) Pacemaker Social History (Reviewed 10/21/23 @ 15: by MARYAM Price) Household Members: None Housing: Apartment Do you presently have visiting nurse or other home services: Yes (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 Overall normal device function. [id number] Cardiac Device Interrogation, pacemaker Procedure code (CPT) selection complete Assessment & Plan Assessment & Plan (1) Persistent atrial fibrillation: Code(s): I48.19 - Other persistent atrial fibrillation Plan x Coding Level of Care Code Procedure Only Diagnoses Persistent atrial fibrillation I48.19 CPT Codes Cardiac Device Check - Cardiac Device 12: [id number] Cardiac Device Interrogation, pacemaker ([id number])
== END ==
PROVIDERS: PCP Internal Medicine; Visit Provider Internal Medicine
DX: I48.19 Other persistent atrial fibrillation (principal); Z95.0 Presence of cardiac pacemaker
CPT/HCPCS: 93294

== ENCOUNTER → 2024-03-02 23:59 | Outpatient (BNV) | payer OTHER, SELFPAY ==
--- NOTE | 2024-03-08 20:37 | A.OFFVIS_ITS ---
Intake Visit Reasons: REmote deice check- [place] Allergies amoxicillin [Amoxicillin] Allergy (Severe, Verified 10/21/23 13:45) NAUSEA/VOMITING aspirin [Aspirin] Allergy (Severe, Verified 10/21/23 13:45) GASTRITIS ibuprofen [From Motrin] Allergy (Severe, Verified 10/21/23 13:45) gastritis, difficulty breathing erythromycin base [Erythromycin Base] Adverse Reaction (Severe, Verified 10/21/23 13:45) Headache, Migraines PFSH Medical History (Reviewed 10/21/23 @ 15: by Roxann Wiley NP-C) Nocturnal hypoxemia Complete heart block HTN (hypertension) COPD (chronic obstructive pulmonary disease) AAA (abdominal aortic aneurysm) Pulmonary hypertension Persistent atrial fibrillation Surgical History (Reviewed 10/21/23 @ 15: by MARYAM Price) Pacemaker Social History (Reviewed 10/21/23 @ 15: by MARYAM Price) Household Members: None Housing: Apartment Do you presently have visiting nurse or other home services: Yes (dental hygienist mobile coordinator for housework) Patient Tobacco Use Status: Current everyday Tobacco user Tobacco use type: Cigarette Cigarette Packs Per Day: 0.5 Cigarettes Per Day: 8 Years Smoked: 72 e-Cigarette/Vaping Use: Never Used Advance Directives Date on File: 08/22/21 service: No Current occupational status: retired Office Procedures Cardiac Device Check Cardiac Device Check Details: Date of service- 03/02/2024 ; Battery life >4 years; normal lead parameters; AP 10%; RETAIL MARKETING COORDINATOR >99%; AF episodes, controlled rate. Overall normal device function. [id number] Cardiac Device Interrogation, pacemaker Procedure code (CPT) selection complete Assessment & Plan Assessment & Plan (1) Persistent atrial fibrillation: Code(s): I48.19 - Other persistent atrial fibrillation Category: Medical Plan x Coding Level of Care Code Procedure Only Diagnoses Persistent atrial fibrillation I48.19 CPT Codes Cardiac Device Check - Cardiac Device 12: [id number] Cardiac Device Interrogation, pacemaker ([id number])
== END ==
PROVIDERS: PCP Internal Medicine; Visit Provider Internal Medicine
DX: I48.19 Other persistent atrial fibrillation (principal); Z95.0 Presence of cardiac pacemaker
CPT/HCPCS: 93294

== ENCOUNTER → 2024-06-01 23:59 | Outpatient (BNV) | payer OTHER, SELFPAY ==
--- NOTE | 2024-06-02 14:04 | MHC.OFFVIS ---
Intake Visit Reasons: Remote device check- [place] Allergies amoxicillin [Amoxicillin] Allergy (Severe, Verified 10/21/23 13:45) NAUSEA/VOMITING aspirin [Aspirin] Allergy (Severe, Verified 10/21/23 13:45) GASTRITIS ibuprofen [From Motrin] Allergy (Severe, Verified 10/21/23 13:45) gastritis, difficulty breathing erythromycin base [Erythromycin Base] Adverse Reaction (Severe, Verified 10/21/23 13:45) Headache, Migraines PFSH Medical History (Reviewed 10/21/23 @ 15: by JANICE PriceC) Nocturnal hypoxemia Complete heart block HTN (hypertension) COPD (chronic obstructive pulmonary disease) AAA (abdominal aortic aneurysm) Pulmonary hypertension Persistent atrial fibrillation Surgical History (Reviewed 10/21/23 @ 15: by MARYAM Price) Pacemaker Social History (Reviewed 10/21/23 @ 15: by MARYAM Price) Household Members: None Housing: Apartment Do you presently have visiting nurse or other home services: Yes (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 Overall normal device function. [id number] Cardiac Device Interrogation, pacemaker Procedure code (CPT) selection complete Assessment & Plan Assessment & Plan (1) Complete heart block: Code(s): I44.2 - Atrioventricular block, complete Category: Medical Plan x Coding Level of Care Code Procedure Only Diagnoses Complete heart block I44.2 CPT Codes Cardiac Device Check - Cardiac Device 12: [id number] Cardiac Device Interrogation, pacemaker ([id number])
== END ==
PROVIDERS: PCP Internal Medicine; Visit Provider Internal Medicine
DX: I44.2 Atrioventricular block, complete (principal); Z95.0 Presence of cardiac pacemaker
CPT/HCPCS: 93294